=== PATIENT | female | born 1960 | race Caucasian/White ===

== ENCOUNTER 2019-07-11 10:25 | Inpatient (IN) | payer MEDICARE, OTHER ==
[~2019-07-11] VITALS: Ht 167.6 cm; Wt 99.4 kg
[2019-07-11] MEDS ORDERED: IV NORMAL SALINE 1,000ML 1,000 ML IV ONE (10:45)
[2019-07-11] MEDS ORDERED: ACETAMINOPHEN 325 MG TABLET PO ONE (10:45)
--- NOTE | 2019-07-11 11:05 | PHYS DOC ---
Adult General Chief Complaint Chief Complaint: ALTERED MENTAL STATUS HPI HPI 59-year-old female presents with fever and altered mental status. She lives in a long-term. She sometimes will not respond. When she is angry. She also does not respond when she is ill. They found the patient Fever, so they brought her to the emergency room. She has a history of COPD but is not on breathing treatments she tells us that she has been coughing. She normally has peripheral edema in her bilateral extremities. She denies increased shortness of breath. She does not complain of dysuria. Review of Systems Review of Systems Constitutional: Fever[] Eyes: Denies change in visual acuity, redness, or eye pain [] HENT: Denies nasal congestion or sore throat [] Respiratory: Cough without shortness of breath [] Cardiovascular: No additional information not addressed in HPI [] GI: Denies abdominal pain, nausea, vomiting, bloody stools or diarrhea [] : Denies dysuria or hematuria [] Musculoskeletal: Denies back pain or joint pain [] Integument: Denies rash or skin lesions [] Neurologic: Denies headache, focal weakness or sensory changes [] Endocrine: Denies polyuria or polydipsia [] All other systems were reviewed and found to be within normal limits, except as documented in this note. Current Medications Current Medications Current Medications Medications (Trade) Dose Ordered Sig/Sharona Start Time Stop Time Status Last Admin Dose Admin Acetaminophen (Tylenol) 650 mg 1X ONCE 07/11/19 10:45 07/11/19 10:46 UNV Sodium Chloride 1,000 ml @ 1,000 mls/hr 1X ONCE 07/11/19 10:45 07/11/19 11:44 UNV Physical Exam Physical Exam Constitutional: Well developed, well nourished, no acute distress, non-toxic appearance. [] HENT: Normocephalic, atraumatic, bilateral external ears normal, oropharynx moist, no oral exudates, nose normal. [] Eyes: PERRLA, EOMI, conjunctiva normal, no discharge. [] Neck: Normal range of motion, no tenderness, supple, no stridor. [] Cardiovascular: Heart rate regular rhythm, no murmur [] Lungs & Thorax: Bilateral breath sounds diminished[] Abdomen: Bowel sounds normal, soft, no tenderness, no masses, no pulsatile masses. [] Skin: Warm, dry, no erythema, no rash. [] Back: No tenderness, no CVA tenderness. [] Extremities: No tenderness, no cyanosis, no clubbing, ROM intact, 3+ bilateral pitting edema to the knees. [] Neurologic: Alert and oriented X 3, normal motor function, normal sensory function, no focal deficits noted. [] Psychologic: Affect normal, judgement normal, mood normal. [] EKG EKG [] Radiology/Procedures Radiology/Procedures [] Impressions: EXAM: CHEST AP ONLY INDICATION: Fever and cough. TECHNIQUE: Single AP view COMPARISON: None FINDINGS: The heart size is normal. The great vessels appear unremarkable. There is no hilar or mediastinal mass. The lungs are hypoventilatory but show patchy ill-defined opacity in the inferior right lung.. There is no pleural effusion or pneumothorax. There are no significant osseous abnormalities. IMPRESSION: Hypoventilatory chest showing ill-defined opacity in the posterior lateral right lung which could reflect early pneumonia in the appropriate clinical context. Consider follow-up to resolution. Electronically signed by: Kathy Hall MD (07/11/2019 11:28 AM) [facility] DICTATED AND SIGNED BY: KATHY HALL MD DATE: 07/11/19 1128 CC: DANIEL POWELL DO; SILVIA REYES MD ~ Course & Med Decision Making Course & Med Decision Making Pertinent Labs and Imaging studies reviewed. (See chart for details) The patient's influenza was negative. Her labs are unremarkable except for lactic acid 2.3. Her blood pressure is normal. Her heart rate is below 90. She is not hypoxic. Chest x-ray shows possible early pneumonia. Blood culture and lactic acid were drawn. The patient was given Zosyn in the ED. I discussed the patient with Dr. Galloway and he has accepted her for admission. [] Dragon Disclaimer Dragon Disclaimer This electronic medical record was generated, in whole or in part, using a voice recognition dictation system. Departure Departure: Impression: Primary Impression: Pneumonia Disposition: ADMITTED INPATIENT Admitting Physician: Harshad Galloway Condition: STABLE Referrals: SILVIA REYES MD (PCP) DANIEL POWELL DO Jul 11, 2019 11:05
[2019-07-11 11:25] LABS: BASO % 0 % (0-3); EOS % 0 % (0-3); HEMATOCRIT 42.5 % (36.0-47.0); HEMOGLOBIN 13.6 g/dL (12.0-15.5); LYMPH % 12 % (24-48); MEAN CORPUSCULAR HEMOGLOBIN 30 pg (25-35); MEAN CORPUSCULAR HGB CONC 32 g/dL (31-37); MEAN CORPUSCULAR VOLUME 93 fL (79-100); MONO # 0.5 x10^3/uL (0.0-1.1); MONO % 7 % (0-9); NEUT # 6.2 x10^3uL (1.8-7.7); NEUT % 81 % (31-73); PLATELET COUNT 173 x10^3/uL (140-400); RED BLOOD COUNT 4.59 x10^6/uL (3.50-5.40); RED CELL DISTRIBUTION WIDTH 13.8 % (11.5-14.5); WHITE BLOOD COUNT 7.7 x10^3/uL (4.0-11.0)
--- NOTE | 2019-07-11 11:31 | RAD ---
EXAM: CHEST AP ONLY INDICATION: Fever and cough. TECHNIQUE: Single AP view COMPARISON: None FINDINGS: The heart size is normal. The great vessels appear unremarkable. There is no hilar or mediastinal mass. The lungs are hypoventilatory but show patchy ill-defined opacity in the inferior right lung.. There is no pleural effusion or pneumothorax. There are no significant osseous abnormalities. IMPRESSION: Hypoventilatory chest showing ill-defined opacity in the posterior lateral right lung which could reflect early pneumonia in the appropriate clinical context. Consider follow-up to resolution. Electronically signed by: Antoinette Hall MD (07/11/2019 11:28 AM) [facility]
[2019-07-11 11:37] LABS: GFR 56.7; POTASSIUM 4.2 mmol/L (3.5-5.1)
[2019-07-11 11:41] LABS: ALBUMIN 3.2 g/dL (3.4-5.0); ALBUMIN/GLOBULIN RATIO 0.7 (1.0-1.7); TOTAL BILIRUBIN 0.3 mg/dL (0.2-1.0); TOTAL PROTEIN 7.5 g/dL (6.4-8.2)
[2019-07-11 11:53] LABS: INFLUENZA A PATIENT NEGATIVE (NEGATIVE); INFLUENZA B PATIENT NEGATIVE (NEGATIVE)
[2019-07-11 12:03] LABS: BACTERIA,URINE 0 /HPF (0-FEW); BILIRUBIN,URINE NEG (NEG); CLARITY,URINE CLEAR; COLOR,URINE YELLOW; GLUCOSE,URINE NEG (NEG); NITRITE,URINE NEG (NEG); RBC,URINE RARE /HPF (0-2); SQUAMOUS EPITHELIAL CELL,UR FEW /LPF; UROBILINOGEN,URINE 0.2 mg/dL (0.2 mg/dL); WBC,URINE OCC /HPF (0-4)
[2019-07-11] MEDS ORDERED: PIPERACILLIN/TAZOBACTAM 3.375 GM VIAL IV ONE (12:15)
[2019-07-11] MEDS ORDERED: IV NORMAL SALINE 50ML 50 ML ONE (12:15)
[2019-07-11] MEDS ORDERED: PIPERACILLIN/TAZOBACTAM 3.375 GM in IV NORMAL SALINE 50ML 50 ML IV ONE (12:15)
[2019-07-11] MEDS ORDERED: IOHEXOL 300 MG/ML 75 ML VIAL. IV ONE (12:30)
[2019-07-11] MEDS ORDERED: CONTRAST GIVEN MC PRN (12:30)
--- NOTE | 2019-07-11 13:34 | RAD ---
CT ABD PELV W/ IV CONTRST ONLY History: Left lower quadrant pain. Fever. Technique: After the administration of intravenous contrast, CT imaging was performed of the abdomen and pelvis. Multiplanar images are reviewed. Exposure: One or more of the following individualized dose reduction techniques were utilized for this examination: 1. Automated exposure control 2. Adjustment of the mA and/or kV according to patient size 3. Use of iterative reconstruction technique. Comparison: None Findings: Lower chest: No consolidation or pleural effusion. Abdomen and pelvis: The liver, spleen, adrenal glands, and pancreas are unremarkable. Normal appearance of the gallbladder. Dilated common bile duct measures up to 1.2 cm. Malrotated right kidney. No hydronephrosis. No renal calculi. Borderline enlarged appendix. Gas is seen within the appendix. No adjacent inflammatory changes to suggest acute appendicitis. No evidence of bowel obstruction. Thickening of the gastric antrum. No adjacent inflammatory changes. Mildly enlarged external iliac chain and inguinal lymph nodes. No ascites. Pelvic contents are otherwise unremarkable. Bones: Grade 1 anterolisthesis L4 on L5. Transitional lumbosacral anatomy with lumbarization of S1. Advanced multilevel lumbar spondylosis. Multilevel neuroforaminal narrowing. L4-L5 mild to moderate canal narrowing. Impression: 1. Dilated common bile duct. Recommend correlation with biliary lab values. MRCP can further evaluate if clinically indicated. 2. Moderate distal colonic and rectal stool. 3. Pelvic and inguinal lymphadenopathy, may be on a reactive basis although indeterminate. Recommend follow-up. 4. Mild gastric antral wall thickening, may relate to nondistention. Correlate for symptoms of gastritis. 5. Advanced multilevel lumbar spondylosis with grade 1 anterolisthesis L4 on L5. Electronically signed by: Moris Hunt DO (07/11/2019 1:31 PM) [id number]
[2019-07-11] MEDS: IV NORMAL SALINE 1,000ML 1,000 ML IV SCH ×3 (14:08→19:30)
--- NOTE | 2019-07-11 18:06 | NUR ---
PT ORIENTED TO ROOM AND UNIT,BED LOW AND LOCKED, SIDE RAILS UPX3, CALL LIGHT IN REACH. TELE APPLIES, ADMIT ORDER, AND MRSA SWAB SENT TO LAB. WILL CONTINUE TO ASSESS. Addendum: 07/11/19 at 1850 by Williams Daly RN REPORTED BY LILY NAVARRO THAT PT HAD IV IN LEFT FOREARM HOWEVER NO IV IN LEFT FOREARM WHEN PT ASSESSED.
[2019-07-11 18:17] VITALS: BP 92/48
--- NOTE | 2019-07-11 18:59 | NUR ---
DR MADSEN AWARE THAT PT ADMITTED FOR SEPSIS REPEAT LACTIC DRAWN WHEN PT ADMITTED TO ICU.
--- NOTE | 2019-07-11 19:04 | NUR ---
BEDSIDE REPORT GIVEN TO ELANA NAVARRO WHO ATTEMPT TO ESTABLISH IV ACCESS.
[2019-07-11 19:48] VITALS: BP 97/52
--- NOTE | 2019-07-11 20:50 | NUR ---
NEW IV ACCESS OBTAINED AFTER MULTIPLE ATTEMPTS. #22 TO LEFT WRIST. PT TEARFUL, BUT TOLERATED WITH ENCOURAGEMENT. 30MG/KG FLUID BOLUS COMPLETED. IV FLUIDS NOW RUNNING AT 100ML/HR.
--- NOTE | 2019-07-11 21:07 | NUR ---
DR. MADSEN NOTIFIED OF REPEAT LACTIC, 1.6. PT RECEIVED ONE TIME DOSE OF ZOSYN WHILE IN THE ED. NEW ORDERS FOR VANCO AND ZOSYN PER PHARMACY, ENTERED.
[2019-07-11] MEDS ORDERED: PIP/TAZO PER PHARMACY MC PRN (21:15)
[2019-07-11] MEDS ORDERED: VANCOMYCIN PER PHARMACY MC PRN (21:15)
[2019-07-11] MEDS ORDERED: VANCOMYCIN 2 GM in IV NORMAL SALINE 500ML 500 ML IV ONE (21:30)
--- NOTE | 2019-07-11 22:18 | NUR ---
Pharmacy Vancomycin Dosing Note S:Consulted to monitor and dose vancomycin started . O:GERBER OLSON is a 59 year old F with Pneumonia, . Height: 5 feet, 6 inches Weight: 100.0 kg [place] Body Weight: 59.30 Adjusted Body Weight: 75.58 Dosing Weight: Actual Other Antibiotics: ZOSYN 3.375GM Q6HRS LABS: Last BUN: 20 Last Creatinine: 1 Creatinine Clearance: Last WBC: 7.7 Last Procalcitonin: Tmax (past 24 hours): Microbiology: I/O: Drug Levels: Last level: on at Last dose given at Vancomycin Dosing: Loading Dose: 2000 mg x1 Dosing Weight: Actual Target Trough: 15-20 A: Based on: P: 1. Begin Vancomycin 1500 mg IV q12h 2. Follow up Trough level on 07/13/19 at 0930 3. Pharmacy will continue to monitor, follow and adjust therapy as needed. XAVIER SMALLS [facility], 07/11/19 [id number]
[2019-07-11 23:16] VITALS: BP 96/52
[2019-07-12] VITALS (8 sets, daily range): BP systolic 90–127; BP diastolic 50–87
[2019-07-12] MEDS: IV NORMAL SALINE 1,000ML 1,000 ML IV SCH (04:30)
[2019-07-12] MEDS ORDERED: ACETAMINOPHEN 325 MG TABLET PO PRN (05:15)
[2019-07-12] MEDS: PIPERACILLIN/TAZOBACTAM 3.375 GM in IV NORMAL SALINE 50ML 50 ML IV SCH ×6 (05:25→18:42)
[2019-07-12 06:19] LABS: HEMATOCRIT 36.1 % (36.0-47.0); HEMOGLOBIN 11.5 g/dL (12.0-15.5); RED BLOOD COUNT 3.89 x10^6/uL (3.50-5.40); RED CELL DISTRIBUTION WIDTH 14.2 % (11.5-14.5); WHITE BLOOD COUNT 6.8 x10^3/uL (4.0-11.0)
[2019-07-12 06:28] LABS: CALCIUM 8.1 mg/dL (8.5-10.1); CREATININE 0.9 mg/dL (0.6-1.0); GFR 64.1; POTASSIUM 3.4 mmol/L (3.5-5.1)
--- NOTE | 2019-07-12 07:30 | NUR ---
Shift report: Received report from night shift Corrina NAVARRO. PT experienced Corrina HAYWARD assisted on BSC and back to bed. PT resting quietly at this time, watching television. VSS. Alert to self and situation. Denies pain, nausea and further comfort needs. No evidence of distress at this time. PT stable at time of shift report. Addendum: 07/12/19 at 1251 by CECILLE BERNAL RN RN night shift RN discontinued fluids due to bilateral 3+ pitting edema in patient's legs. Patient is drinking and voiding regularly. PT saline locked at this time. Will continue to monitor.
[2019-07-12] MEDS: LACTOBACILLUS RHAMNOSUS GG 1 CAPSULE. PO SCH ×2 (09:38→20:22)
[2019-07-12] MEDS: VANCOMYCIN 1.5 GM in IV NORMAL SALINE 500ML 500 ML IV SCH ×2 (10:33→21:47)
--- NOTE | 2019-07-12 12:00 | NUR ---
40mEQ PO Potassium administered for electrolyte replacement of K+ 3.4.
[2019-07-12] MEDS ORDERED: POTASSIUM CHLORIDE 20 MEQ TABLET.ER. PO ONE (12:15)
--- NOTE | 2019-07-12 12:48 | NUR ---
Zosyn delayed as Vancomycin still running. Vionicedex reports variable y-site reactions with solution mixing.
[2019-07-12] MEDS ORDERED: DIVA-53 PO ×2 (15:52)
[2019-07-12] MEDS ORDERED: FAMO20TA5 PO (15:52)
[2019-07-12] MEDS ORDERED: ATOR10TA60 PO (15:52)
[2019-07-12] MEDS ORDERED: CARI1.5C PO (15:52)
[2019-07-12] MEDS ORDERED: MELA10CA PO ×2 (15:52→18:15)
[2019-07-12] MEDS ORDERED: GABA-585 PO (15:52)
[2019-07-12] MEDS ORDERED: CARB1TAB22 PO (15:52)
[2019-07-12] MEDS ORDERED: ESCITALOPRAM OX10 MG PO (15:52)
[2019-07-12] MEDS ORDERED: CARI3CAP PO (15:52)
[2019-07-12] MEDS ORDERED: ASPI81TA50 PO (15:52)
[2019-07-12] MEDS ORDERED: CETI10TA16 PO (15:52)
[2019-07-12] MEDS ORDERED: FLUT100D IH (18:15)
[2019-07-12] MEDS ORDERED: ROPI1TAB4 PO (18:15)
[2019-07-12] MEDS ORDERED: FLUTICASONE 50 MCG NS (18:15)
[2019-07-12] MEDS ORDERED: FURO40TA4 PO (18:15)
[2019-07-12] MEDS ORDERED: PROP20TA PO (18:15)
[2019-07-12] MEDS ORDERED: [UNRECOGNIZED DRUG - CODE] PO (18:15)
[2019-07-12] MEDS ORDERED: PRIM50TA24 PO ×2 (18:15)
[2019-07-12] MEDS ORDERED: CHOL200044 PO (18:15)
[2019-07-12] MEDS ORDERED: MONT10TA80 PO (18:15)
--- NOTE | 2019-07-12 18:38 | HP ---
ADMIT DATE: 07/11/2019 HISTORY OF PRESENT ILLNESS: The patient is a 59-year-old female patient, a resident at [facility], who was brought to the Emergency Room with altered mental status and fever. She apparently became very lethargic. They found the patient to be febrile and when she was extensively investigated in the Emergency Room, her white cell count was normal. Her chemistry was unremarkable. Her urinalysis also was unremarkable. Her influenza A and B were negative and her nasal screen for MRSA by PCR was negative; however, her chest x-ray showed hypoventilatory chest showing ill-defined opacity in the posterolateral right lung, which could reflect early pneumonia in the appropriate clinical context and therefore, the patient was admitted, was started on antibiotic in the form of Zosyn and vancomycin for healthcare-associated pneumonia. The patient herself has intellectual disability. PAST MEDICAL HISTORY: Significant for hyperlipidemia, mild intellectual disability, hypertension, allergic rhinitis, asthma, gastroesophageal reflux disease, schizoaffective disorder, bipolar, restless leg syndrome, tremors that are unspecified. PAST SURGICAL HISTORY: None reported. ALLERGIES: She has no known drug allergies. MEDICATIONS: She is currently on atorvastatin 10 mg at bedtime, carbidopa/levodopa 25/100 one tablet 4 times a day. She is also on divalproex 500 mg, she takes 1 tablet in the morning and 2 tablets at bedtime. She is on citalopram hydrobromide 10 mg once a day, famotidine 20 mg twice a day. REVIEW OF SYSTEMS: The patient was apparently very lethargic. FAMILY HISTORY: Unobtainable. SOCIAL HISTORY: She is a resident at [facility]. PHYSICAL EXAMINATION: GENERAL: On arrival to the Emergency Room, she apparently looked well and was clearly in no apparent respiratory distress. No pallor, jaundice, cyanosis or thyromegaly. No jugular venous distention. No limb edema. VITAL SIGNS: Her heart rate was 95, blood pressure 157/90, temperature was 101.7, respiratory rate was 24, and oxygen saturation was 97%. HEAD, EYES, EARS, NOSE AND THROAT: Showed normocephalic, atraumatic. NECK: Supple. HEART: Showed normal first and second heart sounds. No gallop, rub or murmur. CHEST: Showed central trachea, equal bilateral chest expansion and air entry, vesicular breath sounds. Few crepitation mostly in the right side posteriorly. I could not appreciate any rhonchi. ABDOMEN: Distended, soft, nontender. NEUROLOGIC: She is lethargic, but arousable. All cranial nerves intact. EXTREMITIES: She moves extremities without difficulty, although the patient has been so weak, she was unable to move, although normally she is able to walk with a walker. LABORATORY DATA: Her lab work on arrival showed a white cell count 7700, hemoglobin 13.6, hematocrit 42.5, MCV 93, and platelet count 273,000. Her chemistry showed a serum sodium 142, potassium 4.2, chloride 103, bicarbonate 28, anion gap of 11, BUN 20, creatinine 1, estimated GFR was 56 mL per minute. Her glucose 114, lactic acid was 2.3, calcium was 9. Total bilirubin, AST, ALT, alkaline phosphatase were normal. Total protein 7.5, albumin 3.2. Urinalysis was essentially unremarkable. Her nasal screen for MRSA PCR was negative and her influenza A and B were negative. ASSESSMENT AND PLAN: The patient was admitted with healthcare-associated pneumonia, fever, lactic acidosis. She was treated with IV Rocephin and Zithromax. Once we have her medication list, we will reconcile them and will deescalate her antibiotic once we have the culture and sensitivity. JEFFERY MADSEN MD DR: REYNOLD/mariusz JOB#: [id number] / [id number]
[2019-07-12] MEDS: MAGNESIUM OXIDE 400 MG TABLET PO SCH (20:21)
[2019-07-12] MEDS: MONTELUKAST 10 MG TABLET. PO SCH (20:22)
[2019-07-12] MEDS: CARBIDOPA/LEVODOPA 25/100MG TABLET PO SCH (20:22)
[2019-07-12] MEDS: DIVALPROEX SODIUM 250 MG TABLET.DR. PO SCH (20:22)
[2019-07-12] MEDS: MELATONIN 3 MG TABLET PO SCH (20:22)
[2019-07-12] MEDS: rOPINIRole 1 MG TABLET. PO SCH (20:22)
[2019-07-12] MEDS: FAMOTIDINE 20 MG TABLET PO SCH (20:22)
[2019-07-12] MEDS: GABAPENTIN 100 MG CAPSULE. PO SCH (20:22)
[2019-07-12] MEDS: FUROSEMIDE 40 MG TABLET PO SCH (20:23)
[2019-07-12] MEDS: PROPRANOLOL 20 MG TABLET. PO SCH (20:25)
[2019-07-12] MEDS: BUDESONIDE 0.5 MG/2 ML NEBU NEB SCH (20:53)
[2019-07-12] MEDS ORDERED: NON FORMULARY ITEM (Fluticasone Propionate (Flovent 100MCG Diskus) 2 PUFF) IH SCH (21:00)
--- NOTE | 2019-07-12 21:20 | NUR ---
Nursing note Pt in bed at shift change, alert and oriented to self and location, smiles on approach, no agitation or aggression. Compliant with meds and assessments, held propranolol for low BP 105/51 pt is already a bit unsteady on her feet so held for now. Takes po meds well no swallowing issues. Mild intellectual deficits noted, but is able to make her needs known. Can transfer with one assist to bedside commode.
[2019-07-12] MEDS: PRIMIDONE 50 MG TABLET PO SCH (21:45)
[2019-07-13] MEDS: PIPERACILLIN/TAZOBACTAM 3.375 GM in IV NORMAL SALINE 50ML 50 ML IV SCH ×4 (03:16→16:58)
--- NOTE | 2019-07-13 05:17 | NUR ---
Nursing Note Pt awoke around 4 am wet from incontinence, bath given and bed changed, back to bed and comfortable at this time.
--- NOTE | 2019-07-13 06:24 | PN ---
DATE: SUBJECTIVE: The patient is sitting, slightly propped up in bed, eating her dinner comfortably, in no apparent distress. She denied any complaint. The nursing staff stated that she is definitely much improved. She is now able to get out of the bed to bedside commode with assistance something that she has been able to do over the last few days. She is feeding herself and she has some tremors. She is, however, remained afebrile. PHYSICAL EXAMINATION: GENERAL: When I examined her, she was pale, but no jaundice, cyanosis or thyromegaly. No jugular venous distention. No limb edema. VITAL SIGNS: Her heart rate was 54, blood pressure was 96/52, temperature 97.5, respiratory rate was 16 and oxygen saturation was 96%. HEAD, EYES, EARS, NOSE AND THROAT: Normocephalic, atraumatic. NECK: Supple. HEART: Showed normal first and second heart sounds. No gallop or murmur. CHEST: Clear to auscultation. No crepitation or rhonchi. ABDOMEN: Distended, soft, nontender. No guarding or rigidity. No organomegaly. All hernial orifices intact. Bowel sounds normal. NEUROLOGIC: She was more awake, alert, responding appropriately. All cranial nerves intact. She moves extremities without difficulty. She managed to get out of bed to bedside commode with assistance. Her intake was 5330, output was 650. LABORATORY DATA: Her lab work this morning showed her white cell count to be ____, hemoglobin 11.5, hematocrit 36, MCV 93 and platelet count 249,000. Her chemistry showed a serum sodium 141, potassium 3.4, chloride 106, bicarbonate 27, anion gap of 8, BUN 17, creatinine 0.9, estimated GFR was 64 mL per minute. His glucose was 106, calcium was 8.1. ASSESSMENT: In summary, this is a 59-year-old female patient with mild intellectual disability, who lives at [facility], who was admitted yesterday with fever, lactic acidosis and was found to have right lower lobe infiltrate and was admitted and treated with IV antibiotic using healthcare-associated pneumonia protocol. She is doing much better. She has multiple other medical problems including: A. Hypertension. B. Hyperlipidemia. C. Bronchial asthma. D. Gastroesophageal reflux disease. E. Restless leg syndrome and allergic rhinitis, together with schizoaffective disorder. PLAN: To continue with IV antibiotic for now. We will await the result of blood culture and if it is negative, we can switch her to oral Augmentin and can be discharged back to [facility] tomorrow or after ____. JEFFERY MADSEN MD DR: REYNOLD/mariusz JOB#: [id number] / [id number]
[2019-07-13 07:05] VITALS: BP 92/59
[2019-07-13] MEDS: rOPINIRole 1 MG TABLET. PO SCH ×3 (08:04→22:22)
[2019-07-13] MEDS: PRIMIDONE 50 MG TABLET PO SCH ×3 (08:04→22:23)
[2019-07-13] MEDS: FLUTICASONE 50MCG/NASAL SPRAY 16GM BOTTLE. NS SCH (08:04)
[2019-07-13] MEDS: ASPIRIN ENTERIC COATED 81 MG TABLET.DR. PO SCH (08:04)
[2019-07-13] MEDS: LACTOBACILLUS RHAMNOSUS GG 1 CAPSULE. PO SCH ×2 (08:04→22:22)
[2019-07-13] MEDS: CHOLECALCIFEROL (VITAMIN D3) 1,000 UNIT TABLET PO SCH (08:05)
[2019-07-13] MEDS: FAMOTIDINE 20 MG TABLET PO SCH ×2 (08:06→22:21)
[2019-07-13] MEDS: DIVALPROEX SODIUM 250 MG TABLET.DR. PO SCH ×2 (08:06→22:21)
[2019-07-13] MEDS: CETIRIZINE HCL 10 MG TABLET PO SCH (08:06)
[2019-07-13] MEDS: CARBIDOPA/LEVODOPA 25/100MG TABLET PO SCH ×4 (08:06→22:22)
[2019-07-13] MEDS: ATORVASTATIN CALCIUM 10 MG TABLET. PO SCH (08:06)
[2019-07-13] MEDS: MAGNESIUM OXIDE 400 MG TABLET PO SCH ×3 (08:06→22:22)
[2019-07-13] MEDS: PROPRANOLOL 20 MG TABLET. PO SCH ×2 (08:06→22:20)
[2019-07-13] MEDS ORDERED: POTASSIUM CHLORIDE 20 MEQ TABLET.ER. PO ONE (08:15)
[2019-07-13] MEDS: NON FORMULARY ITEM (Cariprazine Hydrochloride (Vraylar) 1 CAP) PO SCH (09:00)
[2019-07-13] MEDS ORDERED: NON FORMULARY ITEM (Cariprazine Hydrochloride (Vraylar) 1 CAP) PO SCH (09:00)
[2019-07-13 10:03] LABS: CALCIUM 8.9 mg/dL (8.5-10.1); CREATININE 0.9 mg/dL (0.6-1.0); GFR 64.1; POTASSIUM 4.4 mmol/L (3.5-5.1)
[2019-07-13] MEDS: VANCOMYCIN 1.5 GM in IV NORMAL SALINE 500ML 500 ML IV SCH ×2 (10:14→22:00)
[2019-07-13] MEDS: FUROSEMIDE 40 MG TABLET PO SCH ×2 (10:15→13:48)
--- NOTE | 2019-07-13 10:35 | NUR ---
Pt feeling ok today. PT is impulsive and will get up without calling, pt is otherwise able to verbalize understanding of poc. Du NAVARRO
[2019-07-13 10:57] VITALS: BP 106/68
[2019-07-13 11:02] LABS: VANC TR 18.5 mcg/mL (10.0-20.0)
--- NOTE | 2019-07-13 11:10 | NUR ---
Pharmacy Vancomycin Dosing Note S:Consulted to monitor and dose vancomycin started . O:WESLEYGERBER Dover is a 59 year old F with Pneumonia, . Height: 5 feet, 6 inches Weight: 101.8 kg [place] Body Weight: 59.30 Adjusted Body Weight: 75.58 Dosing Weight: Actual Other Antibiotics: ZOSYN 3.375GM Q6HRS LABS: Last BUN: 20 Last Creatinine: 0.9 Creatinine Clearance: Last WBC: 7.7 Last Procalcitonin: Tmax (past 24 hours): Microbiology: CULTURES PENDING I/O: Drug Levels: VANCO TROUGH Last level: 18.5 on 07/13 at 0930 Last dose given at 07/12 2100 Vancomycin Dosing: Loading Dose: 2000 mg x1 Dosing Weight: Actual Target Trough: 15-20 A: Based on: P: 1. Continue CONTINUE Vancomycin 1500 mg IV q12h 2. Pharmacy will continue to monitor, follow and adjust therapy as needed. MALLORIE NUÑEZ [facility], 07/13/19 [id number]
[2019-07-13] MEDS: BUDESONIDE 0.5 MG/2 ML NEBU NEB SCH ×2 (11:34→20:06)
[2019-07-13 16:28] VITALS: BP 113/81
[2019-07-13 19:00] VITALS: BP 114/78
--- NOTE | 2019-07-13 20:17 | PN ---
DATE: 07/13/2019 SUBJECTIVE: The patient is resting, slightly propped up in bed, in no apparent respiratory distress. She is more awake, alert. Denied any complaint. Nursing staff said that she is slightly better this morning, she wanted to get out of the bed with a bedside commode; however, her blood pressure and heart rate were low as she is on high dose of propranolol. PHYSICAL EXAMINATION: GENERAL: When I examined her this afternoon, she looked well and was clearly in no apparent respiratory distress. No pallor, jaundice, cyanosis or thyromegaly. No jugular venous distention. No limb edema. VITAL SIGNS: Her heart rate was 68, blood pressure was 106/68, temperature 97.9, respiratory rate 20, and oxygen saturation was 98% on room air. HEAD, EYES, EARS, NOSE AND THROAT: Showed normocephalic, atraumatic. NECK: Supple. HEART: Showed normal first and second heart sounds with no gallop, rub or murmur. CHEST: Clear to auscultation. No crepitation or rhonchi. ABDOMEN: Distended, soft, nontender. No guarding or rigidity. No organomegaly. All hernial orifice intact. Bowel sounds normal. NEUROLOGIC: She has mild intellectual disability; however, all cranial nerves are intact. She moves extremities without difficulty. Her intake over the last 24 hours was 4800, output was 7350. LABORATORY DATA: Her lab work this morning showed a white cell count 6000, hemoglobin 11, hematocrit 36, MCV 93, and platelet count 249,000. Serum sodium 145, potassium 4.4, chloride 110, bicarbonate 29, anion gap of 6, BUN 14, creatinine 0.9, estimated GFR was 64 mL per minute. Her blood cultures so far showed no growth after 2 days. PLAN: My plan is to discontinue vancomycin. Continue with Zosyn for now. We will probably discharge her home. JEFFERY MADSEN MD DR: REYNOLD/mariusz JOB#: [id number] / [id number]
[2019-07-13] MEDS: MELATONIN 3 MG TABLET PO SCH (22:21)
[2019-07-13] MEDS: MONTELUKAST 10 MG TABLET. PO SCH (22:21)
[2019-07-13] MEDS: GABAPENTIN 100 MG CAPSULE. PO SCH (22:22)
[2019-07-13 22:47] VITALS: BP 110/74
[2019-07-14] MEDS: PIPERACILLIN/TAZOBACTAM 3.375 GM in IV NORMAL SALINE 50ML 50 ML IV SCH ×3 (00:18→12:26)
[2019-07-14 05:03] VITALS: BP 128/84
[2019-07-14] MEDS: FLUTICASONE 50MCG/NASAL SPRAY 16GM BOTTLE. NS SCH (08:38)
[2019-07-14] MEDS: DIVALPROEX SODIUM 250 MG TABLET.DR. PO SCH (08:38)
[2019-07-14] MEDS: CARBIDOPA/LEVODOPA 25/100MG TABLET PO SCH ×2 (08:38→12:26)
[2019-07-14] MEDS: MAGNESIUM OXIDE 400 MG TABLET PO SCH ×2 (08:38→14:01)
[2019-07-14] MEDS: CETIRIZINE HCL 10 MG TABLET PO SCH (08:38)
[2019-07-14] MEDS: CHOLECALCIFEROL (VITAMIN D3) 1,000 UNIT TABLET PO SCH (08:39)
[2019-07-14] MEDS: FUROSEMIDE 40 MG TABLET PO SCH (08:39)
[2019-07-14] MEDS: ATORVASTATIN CALCIUM 10 MG TABLET. PO SCH (08:39)
[2019-07-14] MEDS: FAMOTIDINE 20 MG TABLET PO SCH (08:39)
[2019-07-14] MEDS: PROPRANOLOL 20 MG TABLET. PO SCH (08:39)
[2019-07-14] MEDS: ASPIRIN ENTERIC COATED 81 MG TABLET.DR. PO SCH (08:39)
[2019-07-14] MEDS: BUDESONIDE 0.5 MG/2 ML NEBU NEB SCH (08:40)
[2019-07-14] MEDS: PRIMIDONE 50 MG TABLET PO SCH ×2 (08:40→14:02)
[2019-07-14] MEDS: LACTOBACILLUS RHAMNOSUS GG 1 CAPSULE. PO SCH (08:40)
[2019-07-14] MEDS: rOPINIRole 1 MG TABLET. PO SCH ×2 (08:41→14:02)
[2019-07-14] MEDS: NON FORMULARY ITEM (Cariprazine Hydrochloride (Vraylar) 1 CAP) PO SCH (09:00)
[2019-07-14] MEDS: VANCOMYCIN 1.5 GM in IV NORMAL SALINE 500ML 500 ML IV SCH (09:23)
[2019-07-14 11:05] VITALS: BP 105/70
[2019-07-14 14:51] VITALS: BP 112/79
[2019-07-14] MEDS ORDERED: AMOX1TAB61 PO (14:57)
--- NOTE | 2019-07-14 16:17 | NUR ---
Discharge Note: GERBER OLSON [address] Discharge instructions and discharge home medications reviewed with Patient and a copy given. All questions have been answered and understanding verbalized. The following instructions and handouts were given: Take medications as prescribed. Discontinued lines and drains: discontinued peripheral IV, catheter tip intact, pressure dressing applied. NO apparant complications. Patient discharged to home.
--- NOTE | 2019-07-14 19:29 | DS ---
DATE OF DISCHARGE: 07/14/2019 HOSPITAL COURSE: The patient is a 59-year-old female patient, resident at [facility], who was admitted through the Emergency Room with altered mental status, fever. She became very lethargic and was found to be febrile, extensively investigated and was found to have right lower lobe infiltrate. She was admitted and started on IV Zosyn and vancomycin for healthcare-associated pneumonia. The patient herself has intellectual disability, does not really give useful information. She remained afebrile since she arrived. Her white cell count was normal and her blood cultures remained negative after 3 days. We did discontinue her vancomycin yesterday and continued Zosyn that she remained hemodynamically stable and afebrile. A decision was made to discharge her back to [facility] to continue with oral Augmentin. PHYSICAL EXAMINATION: GENERAL: When I saw her this afternoon, she looked well and was clearly in no apparent respiratory distress, slightly pale, but not jaundiced, cyanosis or thyromegaly. NECK: No jugular venous distention. No limb edema. VITAL SIGNS: Her heart rate was 64, blood pressure 105/70, temperature 97.6, respiratory rate 20, and oxygen saturation was 100%. HEAD, EYES, EARS, NOSE AND THROAT: Showed normocephalic, atraumatic. NECK: Supple. HEART: Showed normal first and second heart sounds with no gallop, rub or murmur. CHEST: Clear to auscultation except for mild few crepitations on the right side posteriorly. No rhonchi. ABDOMEN: Distended, soft, nontender. NEUROLOGIC: She has mild intellectual disability; however, all her cranial nerves are intact. EXTREMITIES: She moves extremities without difficulty. She does ambulate without assistance or assistive devices. Her intake over the last 24 hours was 4800, output was 7350. LABORATORY DATA: Her lab work this morning showed a white cell count of 6800, hemoglobin 11, hematocrit 36, MCV 93, and platelet count of 149,000. Serum sodium 145, potassium 4.4, chloride 110, bicarbonate 29, anion gap of 6, BUN 14, creatinine 0.9, estimated GFR was 64 mL per minute. Her glucose 131 and calcium was 8.9. Urinalysis was unremarkable. Toxic screen showed vancomycin trough level was within normal range. Influenza A and B were negative. DISCHARGE MEDICATIONS: She was discharged home to continue on Augmentin 875 mg twice a day with food for another 7 days. Continue with aspirin 81 mg once a day, atorvastatin 10 mg at bedtime, carbidopa/levodopa 1 tablet 4 times a day, . She is on Vraylar 3 mg daily. She is on cetirizine 10 mg once a day, ergocalciferol vitamin D3 50 mcg once a day, divalproex sodium 500 mg daily, divalproex 1000 mg at bedtime, escitalopram oxalate 10 mg [id number]-half tablet at bedtime daily, famotidine 20 mg twice a day, Flovent 100 mcg 2 puffs twice a day, fluticasone 2 sprays to each nostril once a day, furosemide 40 mg twice a day, gabapentin 100 mg at bedtime, magnesium oxide 400 mg 3 times a day, melatonin 3 mg at bedtime, montelukast 10 mg at bedtime, Mysoline 100 mg twice a day, primidone 100 mg at bedtime, propranolol 60 mg twice a day and Requip 1 mg 3 times a day. FINAL DISCHARGE DIAGNOSES: 1. Healthcare-associated pneumonia, resolving. Other medical problems include: A. Hyperlipidemia. B. Mild intellectual disability. C. Hypertension. D. Allergic rhinitis. E. bronchial asthma. F. Gastroesophageal reflux disease. G. Schizoaffective disorder, bipolar. H. Restless leg syndrome. JEFFERY MADSEN MD DR: REYNOLD/mariusz JOB#: [id number] / [id number]
== END 2019-07-14 16:40 | disposition home or self-care (01) | DRG 178 ==
LOC: ER 10:25 → ICU 17:15 → 1 SOUTH 07-13 16:49
PROVIDERS: ADMIT Internal Medicine; ATTEND Internal Medicine
DX: J15.6 Pneumonia due to other Gram-negative bacteria (principal); J44.0 Chronic obstructive pulmonary disease with (acute) lower respiratory infection; E87.2 Acidosis; E78.5 Hyperlipidemia, unspecified; F25.9 Schizoaffective disorder, unspecified; F70 Mild intellectual disabilities; G25.81 Restless legs syndrome; I10 Essential (primary) hypertension; K21.9 Gastro-esophageal reflux disease without esophagitis; Y95 Nosocomial condition
CPT/HCPCS: 36415; 71045; 74177; 80048; 80053; 80202; 81001; 83605; 83880; 85025; 85027; 87040; 87641; 87804; 94640; 96361; 96365; J2543; J3370; J7040; J7626; Q9967; 99285-25; J7030

== ENCOUNTER → 2019-08-10 | Outpatient (CLI) | payer MEDICARE, OTHER ==
[2019-07-14 14:51] VITALS: BP 112/79
[~2019-08-10] MED LIST: AMOX1TAB61 PO; ASPI81TA50 PO; ATOR10TA60 PO; CARB1TAB22 PO; CARI1.5C PO; CARI3CAP PO; CETI10TA16 PO; CHOL200044 PO; DIVA-53 PO; ESCITALOPRAM OX10 MG PO; FAMO20TA5 PO; FLUT100D IH; FLUTICASONE 50 MCG NS; FURO40TA4 PO; GABA-585 PO; MELA10CA PO; MONT10TA80 PO; PRIM50TA24 PO; PROP20TA PO; ROPI1TAB4 PO; [UNRECOGNIZED DRUG - CODE] PO
--- NOTE | 2019-08-10 12:20 | RAD ---
CHEST PA LATERAL History: Pneumonia, former smoker. Comparison: AP chest 07/11/2019. Findings: The cardiomediastinal silhouette is normal. Pulmonary vasculature is normal. Patchy right lower lobe airspace disease is similar to prior study. The left lung is clear. No pleural effusion or pneumothorax is seen. Degenerative endplate spurring of the thoracic spine. IMPRESSION: Right lower lobe airspace disease is unchanged. Electronically signed by: Fernando Munguia MD (08/10/2019 12:17 PM) [id number]
== END | disposition home or self-care (01) ==
LOC: DXRAD 09:15
PROVIDERS: ATTEND Specialist
DX: J98.4 Other disorders of lung (principal); J15.9 Unspecified bacterial pneumonia; M46.04 Spinal enthesopathy, thoracic region; Z87.891 Personal history of nicotine dependence
CPT/HCPCS: 71046

== ENCOUNTER 2020-01-06 19:31 | Inpatient (IN) | payer MEDICARE, OTHER ==
[~2020-01-06] VITALS: Ht 167.6 cm; Wt 82.1 kg
[2020-01-06] MEDS ORDERED: IV RINGERS SOLUTION,LACTATED 1,000 ML IV SCH (19:40)
--- NOTE | 2020-01-06 19:40 | PHYS DOC ---
Past History Past Medical History: Anxiety, Arthritis, Schizophrenia, Other Additional Past Medical Histor: INTELLECTUAL DEVELOPMENT PROBLEM Past Surgical History: No Surgical History Alcohol Use: None General Adult EDM: Chief Complaint: FEVER HPI: HPI: "..I am not feeling well the past couple days.. they said had a fever..been cou ghing a lot.. wheeze...just don't feel well..." Patient is a 59 year old female who presents with resident of [facility], presents with above hx and complaints fever, chills, dyspnea, cough, chest pain, arthralgia, myalgia, and malaise. No recent travel outside [facility]. No specific ill contacts but there are other individuals in the rehab facility that have medical illnesses. No history of immunosuppression. No history of changes in meds. Patient has had episodes of bronchitis and COPD in the past. Patient does have history of hyperlipidemia, intellectual disability, hypertension, allergic rhinitis, asthma, GERD, schizoaffective disorder, bipolar, restless leg syndrome, tremors, pneumonia, and deconditioning. Review of Systems: Review of Systems: Constitutional: Denies fever or chills Eyes: Denies change in visual acuity HENT: Denies nasal congestion or sore throat Respiratory: History of cough or shortness of breath Cardiovascular: History of chest pain GI: Denies abdominal pain, nausea, vomiting, bloody stools or diarrhea : Denies dysuria Musculoskeletal: Denies back pain or joint pain Integument: Denies rash Neurologic: Denies headache, focal weakness or sensory changes Endocrine: Denies polyuria or polydipsia Lymphatic: Denies swollen glands Psychiatric: Denies depression or anxiety Heart Score: HEART Score for Chest Pain: HEART Score for Chest Pain Response (Comments) Value History Slighlty/Non-Suspicious 0 ECG Normal 0 Age >45 - < 65 1 Risk Factors 1 or 2 Risk Factors 1 Troponin < Normal Limit 0 Total 2 Risk Factors: Risk Factors: DM, Current or recent (<one month) smoker, HTN, HLP, family history of CAD, obesity. Risk Scores: Score 0 - 3: 2.5% MACE over next 6 weeks - Discharge Home Score 4 - 6: 20.3% MACE over next 6 weeks - Admit for Clinical Observation Score 7 - 10: 72.7% MACE over next 6 weeks - Early Invasive Strategies Family History: Family History: Not currently available Current Medications: Current Meds: See nursing for home meds Allergies: Allergies: Allergies Coded Allergies Type Severity Reaction Last Updated Verified No Known Drug Allergies 07/11/19 No Physical Exam: PE: Constitutional: Moderate acute distress, non-toxic appearance. [] HENT: Normocephalic, atraumatic, bilateral external ears normal, oropharynx moist, no oral exudates, nose clear rhinorrhea. Postnasal drainage. Eyes: PERRLA, EOMI, conjunctiva normal, no discharge. [] Neck: Normal range of motion, no tenderness, supple, no stridor. [] Cardiovascular:Heart rate regular rhythm, no murmur [] PMI to the left. Lungs & Thorax: Bilateral breath sounds clear to auscultation [] Abdomen: Bowel sounds normal, soft, no tenderness, no masses, no pulsatile masses. Obese Skin: Warm, dry, no erythema, no rash. [] Back: No tenderness, no CVA tenderness. [] Extremities: No tenderness, no cyanosis, no clubbing, ROM intact, ankle edema. [] Neurologic: Alert and oriented X 3, moves extremities on request, does have distal sensory, no focal deficits noted. [] Psychologic: Affect anxious, judgment appears to have some intellectual disability mood normal. [] EKG: EKG: My interpretation of EKG shows a sinus rhythm at 80 bpm. Leftward axis. Does have baseline artifact from tremor [] Radiology/Procedures: Radiology/Procedures: [address] [address] IMAGING REPORT Signed PATIENT: GERBER OLSON AACCOUNT: [id number] : 1960 LOCATION: SOUTH AGE: 59 SEX: F EXAM STATUS: ADM IN ORD. PHYSICIAN: GABRIEL LARIOS MD REASON: cp,dyspnea, OMNI 350, 75ml PROCEDURE: CT ANGIOGRAPHY CHEST Study: CT CHEST WITH CONTRAST - PULMONARY ANGIOGRAM History: Chest pain. Dyspnea. Pulmonary embolism. Comparison: Correlation is made to the CT abdomen/pelvis from 07/11/2019. Technique: Helical CT of the chest performed after the administration of 75 cc Omnipaque 350 intravenous contrast and timed for angiographic evaluation of the pulmonary arteries per PE protocol. Coronal and sagittal 3D MIP reformations were obtained. One or more of the following individualized dose reduction techniques were utilized for this examination: 1. Automated exposure control 2. Adjustment of the mA and/or kV according to patient size 3. Use of iterative reconstruction technique. Findings: Pulmonary Arteries: No main, lobar or segmental pulmonary embolism. Heart/Systemic Vasculature: No CT findings of overt right heart strain. LAD calcific coronary artery disease. Nonaneurysmal aorta. Mediastinum: Scattered mediastinal and hilar lymph nodes do not meet pathologic criteria based on size. Small hiatal hernia. Mild circumferential thickening of the distal esophageal wall. Lungs: No confluent infiltrate, pleural effusion or pneumothorax. No suspicious pulmonary nodule by size criteria. Neck/Axilla/Body Wall: Heterogeneous prominence of the right thyroid lobe relative to the left with a thin somewhat linear calcification at the mid pole. This may be associated with a nodule but no measurable nodule is apparent. Scattered subcentimeter short axis axillary/subpectoral lymph nodes. Heterogeneous breast tissue without a discrete mass. Upper Abdomen: Nodular configuration of the left adrenal gland is not significantly different from the comparison. Bones: Findings typical of diffuse idiopathic skeletal hyperostosis. Grade 1 anterolisthesis of C7 on T1. Multifocal degenerative changes with mineralized protruding foci at T6-T7 larger than T7-T8. Degenerative changes of both shoulders and possible sequela of prior trauma on the right. Miscellaneous: None. IMPRESSION: 1. No main, lobar or segmental pulmonary embolism. 2. Calcific coronary artery disease involving the LAD. 3. Heterogeneous breast tissue without a discrete mass. If not recently performed screening mammography is recommended. 4. Additional chronic findings, as above Electronically signed by: LINA GORE MD (01/06/2020 11:13 PM) [id number] [][address] [address] IMAGING REPORT Signed PATIENT: GERBER OLSON AACCOUNT: [id number] : 1960 LOCATION: ER AGE: 59 SEX: F EXAM STATUS: REG ER ORD. PHYSICIAN: GABRIEL LARIOS MD REASON: cp, SHORT OF BREATH, COUGH. PROCEDURE: CHEST AP ONLY AP chest. HISTORY: Chest pain, short of breath, cough AP view was taken of the chest. Lungs are clear. Heart is normal in size. There is no effusion. There is thoracolumbar scoliosis. IMPRESSION: 1. No acute infiltrates. Electronically signed by: Chaka Dimas MD (01/06/2020 8:48 PM) [facility] DICTATED AND SIGNED BY: CHAKA DIMAS MD DATE: 01/06/202047 CC: GABRIEL LARIOS MD; SILVIA REYES MD ~ Course & Med Decision Making: Course & Med Decision Making Pertinent Labs and Imaging studies reviewed. (See chart for details) Discussed presentation, testing and tx. plan with Dr. Galloway. Admit for Chest pain rule out and COPD exacerbation Impression: 1. Coughing 2. Dyspnea 3. Bronchitis 4. COPD Exacerbation 5.Chest Pain 6. Fever 7.HTN 8. Intellectual Disability 9. GERD 10. Asthma 11.Restless Leg Syndrome 12.Tremors 13.Hyperlipidemia 14. Elevated BUN/Creat 22/1.3 15.Elevated D dimer 16.Thrombocytopenia 132 [] Dragon Disclaimer: Dragon Disclaimer: This electronic medical record was generated, in whole or in part, using a voice recognition dictation system. Departure Departure: Disposition: 01 HOME/RESIDENCE PRIOR TO ADM Condition: STABLE Referrals: SILVIA REYES MD (PCP) Justification of Admission: Justification of Admission: Justification of Admission Dx: Yes Hypertension: Cres[place] Worsening of Sym Dragon Disclaimer This chart was dictated in whole or in part using Voice Recognition software in a busy, high-work load, and often noisy Emergency Department environment. It may contain unintended and wholly unrecognized errors or omissions. GABRIEL LARIOS MD Jan 06, 2020 19:40
[2020-01-06] MEDS ORDERED: ASPIRIN CHEWABLE 81 MG TABLET. PO ONE (19:45)
[2020-01-06] MEDS ORDERED: AZITHROMYCIN 250 MG TABLET. PO ONE (20:30)
[2020-01-06] MEDS ORDERED: ACETAMINOPHEN 500 MG TABLET PO ONE (20:30)
[2020-01-06 20:38] LABS: BASO % 0 % (0-3); EOS % 0 % (0-3); HEMATOCRIT 39.3 % (36.0-47.0); HEMOGLOBIN 13.1 g/dL (12.0-15.5); LYMPH # 1.2 x10^3/uL (1.0-4.8); LYMPH % 13 % (24-48); MEAN CORPUSCULAR HEMOGLOBIN 31 pg (25-35); MEAN CORPUSCULAR HGB CONC 33 g/dL (31-37); MEAN CORPUSCULAR VOLUME 92 fL (79-100); MONO # 0.9 x10^3/uL (0.0-1.1); MONO % 9 % (0-9); NEUT # 7.6 x10^3uL (1.8-7.7); NEUT % 78 % (31-73); PLATELET COUNT 132 x10^3/uL (140-400); RED BLOOD COUNT 4.28 x10^6/uL (3.50-5.40); RED CELL DISTRIBUTION WIDTH 15.2 % (11.5-14.5); WHITE BLOOD COUNT 9.7 x10^3/uL (4.0-11.0)
[2020-01-06 20:45] LABS: CREATININE 1.1 mg/dL (0.6-1.0); GFR 50.8; POTASSIUM 3.7 mmol/L (3.5-5.1)
[2020-01-06 20:46] LABS: BARBITURATES POS (NEG); BENZODIAZEPINES NEG (NEG); CANNABINOIDS NEG (NEG); COCAINE NEG (NEG); METHADONE NEG (NEG); OPIATES NEG (NEG); PHENCYCLIDINE NEG (NEG)
[2020-01-06 20:47] LABS: AMPHETAMINE/METHAMPHETAMINE NEG (NEG)
--- NOTE | 2020-01-06 20:51 | RAD ---
AP chest. HISTORY: Chest pain, short of breath, cough AP view was taken of the chest. Lungs are clear. Heart is normal in size. There is no effusion. There is thoracolumbar scoliosis. IMPRESSION: 1. No acute infiltrates. Electronically signed by: Chaka Dimas MD (01/06/2020 8:48 PM) [facility]
[2020-01-06 20:55] LABS: BILIRUBIN,URINE NEG (NEG); CLARITY,URINE CLEAR; COLOR,URINE YELLOW; GLUCOSE,URINE NEG (NEG)
[2020-01-06 20:56] LABS: BACTERIA,URINE 0 /HPF (0-FEW); NITRITE,URINE NEG (NEG); RBC,URINE OCC /HPF (0-2); SQUAMOUS EPITHELIAL CELL,UR FEW /LPF; WBC,URINE OCC /HPF (0-4)
[2020-01-06 21:00] LABS: ALBUMIN 3.1 g/dL (3.4-5.0); DIRECT BILIRUBIN 0.1 mg/dL (0.0-0.2); TOTAL BILIRUBIN 0.3 mg/dL (0.2-1.0); TOTAL PROTEIN 7.6 g/dL (6.4-8.2)
[2020-01-06] MEDS ORDERED: ONDANSETRON PF 4 MG/2 ML VIAL. IVP PRN (21:00)
[2020-01-06 21:02] LABS: INFLUENZA A PATIENT NEGATIVE (NEGATIVE); INFLUENZA B PATIENT NEGATIVE (NEGATIVE)
[2020-01-06 21:18] LABS: ACETAMIN < 2 mcg/mL (10-30)
[2020-01-06] MEDS ORDERED: methylPREDNISolone SOD SUCC PF 125 MG/2 ML VIAL. IV ONE (21:30)
[2020-01-06] MEDS ORDERED: CONTRAST GIVEN. MC PRN (21:30)
--- NOTE | 2020-01-06 21:36 | EKG ---
[address] [address] Test Date: 2020-01-06 Test Time: 20:20:58 Pat Name: GERBER OLSON Department: Room: Gender: F [employer]: : 1960 Requested By: GABRIEL LARIOS Order Number: [id number] Reading MD: Measurements Intervals [place] Rate: 80 P: 0 WY: 152 QRS: -11 QRSD: 104 T: 20 QT: 372 QTc: 433 Interpretive Statements SINUS RHYTHM LEFTWARD AXIS OTHERWISE NORMAL ECG RI6.02 No previous ECG available for comparison
[2020-01-06] MEDS ORDERED: ENOXAPARIN ** NOTE DOSE ** SYRINGE SQ ONE (22:00)
[2020-01-06] MEDS ORDERED: IOHEXOL 350 MG/ML 100 ML VIAL. IV ONE (22:00)
--- NOTE | 2020-01-06 22:49 | NUR ---
The patient, GERBER OLSON, 59 y/o, F admitted by JEFFERY MADSEN MD, was given written information regarding hospital policies, unit procedures and contact persons. Valuables were checked and logged. Call light in place. Will continue to monitor.
[2020-01-06 23:06] VITALS: BP 95/53
[2020-01-06] MEDS ORDERED: ALBU2.5V8 IH (23:15)
--- NOTE | 2020-01-06 23:15 | RAD ---
Study: CT CHEST WITH CONTRAST - PULMONARY ANGIOGRAM History: Chest pain. Dyspnea. Pulmonary embolism. Comparison: Correlation is made to the CT abdomen/pelvis from 07/11/2019. Technique: Helical CT of the chest performed after the administration of 75 cc Omnipaque 350 intravenous contrast and timed for angiographic evaluation of the pulmonary arteries per PE protocol. Coronal and sagittal 3D MIP reformations were obtained. One or more of the following individualized dose reduction techniques were utilized for this examination: 1. Automated exposure control 2. Adjustment of the mA and/or kV according to patient size 3. Use of iterative reconstruction technique. Findings: Pulmonary Arteries: No main, lobar or segmental pulmonary embolism. Heart/Systemic Vasculature: No CT findings of overt right heart strain. LAD calcific coronary artery disease. Nonaneurysmal aorta. Mediastinum: Scattered mediastinal and hilar lymph nodes do not meet pathologic criteria based on size. Small hiatal hernia. Mild circumferential thickening of the distal esophageal wall. Lungs: No confluent infiltrate, pleural effusion or pneumothorax. No suspicious pulmonary nodule by size criteria. Neck/Axilla/Body Wall: Heterogeneous prominence of the right thyroid lobe relative to the left with a thin somewhat linear calcification at the mid pole. This may be associated with a nodule but no measurable nodule is apparent. Scattered subcentimeter short axis axillary/subpectoral lymph nodes. Heterogeneous breast tissue without a discrete mass. Upper Abdomen: Nodular configuration of the left adrenal gland is not significantly different from the comparison. Bones: Findings typical of diffuse idiopathic skeletal hyperostosis. Grade 1 anterolisthesis of C7 on T1. Multifocal degenerative changes with mineralized protruding foci at T6-T7 larger than T7-T8. Degenerative changes of both shoulders and possible sequela of prior trauma on the right. Miscellaneous: None. IMPRESSION: 1. No main, lobar or segmental pulmonary embolism. 2. Calcific coronary artery disease involving the LAD. 3. Heterogeneous breast tissue without a discrete mass. If not recently performed screening mammography is recommended. 4. Additional chronic findings, as above Electronically signed by: LINA GORE MD (01/06/2020 11:13 PM) [id number]
[2020-01-07 06:04] VITALS: BP 110/94
--- NOTE | 2020-01-07 06:32 | NUR ---
Pt rested soundly all night. Pt denies pain. Minimal blood crusted on left fingers, around nostrils and on lower lip. Upon inspection, there is a small bite demetrius on lower lip. Pt confirms she picked her nose last night, denies discomfort. Will continue to monitor.
[2020-01-07 06:35] LABS: BASO % 0 % (0-3); EOS % 0 % (0-3); HEMATOCRIT 36.2 % (36.0-47.0); LYMPH # 1.3 x10^3/uL (1.0-4.8); LYMPH % 13 % (24-48); MEAN CORPUSCULAR HEMOGLOBIN 31 pg (25-35); MEAN CORPUSCULAR HGB CONC 33 g/dL (31-37); MEAN CORPUSCULAR VOLUME 92 fL (79-100); MONO # 0.4 x10^3/uL (0.0-1.1); MONO % 4 % (0-9); NEUT # 7.7 x10^3uL (1.8-7.7); NEUT % 82 % (31-73); PLATELET COUNT 117 x10^3/uL (140-400); RED BLOOD COUNT 3.93 x10^6/uL (3.50-5.40); RED CELL DISTRIBUTION WIDTH 14.9 % (11.5-14.5); WHITE BLOOD COUNT 9.3 x10^3/uL (4.0-11.0)
[2020-01-07 06:41] LABS: CALCIUM 8.6 mg/dL (8.5-10.1); GFR 56.7; POTASSIUM 3.6 mmol/L (3.5-5.1)
[2020-01-07] MEDS: PROPRANOLOL 20 MG TABLET. PO SCH ×2 (09:00→21:23)
[2020-01-07] MEDS: IPRATRPIUM/ALBUTEROL 0.5/2.5MG 3 ML NEBU. NEB SCH ×4 (09:30→21:23)
[2020-01-07] MEDS: BUDESONIDE 0.5 MG/2 ML NEBU NEB SCH ×2 (09:30→21:23)
[2020-01-07] MEDS: FAMOTIDINE 20 MG TABLET PO SCH ×2 (09:30→21:17)
[2020-01-07] MEDS: CITALOPRAM 10 MG TABLET. PO SCH (09:31)
[2020-01-07] MEDS: ATORVASTATIN CALCIUM 10 MG TABLET. PO SCH (09:31)
[2020-01-07] MEDS: MAGNESIUM OXIDE 400 MG TABLET PO SCH ×3 (09:31→21:17)
[2020-01-07] MEDS: AZITHROMYCIN 250 MG TABLET. PO SCH (09:31)
[2020-01-07] MEDS: DIVALPROEX SODIUM 250 MG TABLET.DR. PO SCH ×2 (09:31→21:16)
[2020-01-07] MEDS: CARBIDOPA/LEVODOPA 25/100MG TABLET PO SCH ×4 (09:31→21:16)
[2020-01-07] MEDS: CETIRIZINE HCL 10 MG TABLET PO SCH (09:32)
[2020-01-07] MEDS: FUROSEMIDE 40 MG TABLET PO SCH ×2 (09:32→13:50)
[2020-01-07] MEDS: ASPIRIN ENTERIC COATED 81 MG TABLET.DR. PO SCH (09:32)
[2020-01-07] MEDS: FLUTICASONE 50MCG/NASAL SPRAY 16GM BOTTLE. NS SCH (09:41)
[2020-01-07] MEDS: PRIMIDONE 50 MG TABLET PO SCH ×3 (09:44→21:17)
[2020-01-07] MEDS: rOPINIRole 1 MG TABLET. PO SCH ×3 (09:44→21:17)
[2020-01-07 09:52] VITALS: BP 103/62
[2020-01-07 10:09] LABS: THYROID STIM HORMONE (TSH) 0.342 uIU/mL (0.358-3.740)
[2020-01-07 14:17] VITALS: BP 119/78
--- NOTE | 2020-01-07 16:25 | NUR ---
Patient in bed with eyes closed at shift change. Awoke patient without difficulty and she was calm and cooperative with assessment and medication administration. Patient expressed gratitude for all cares given. Takes medications whole without difficulty. Patient complained of stomach pain, but after taking her to the bathroom to void, she stated "I feel so much better." Patient has good appetite, no fever noted, VSS. Will continue to monitor.
[2020-01-07 20:50] VITALS: BP 116/66
[2020-01-07] MEDS: MONTELUKAST 10 MG TABLET. PO SCH (21:17)
[2020-01-07 23:03] VITALS: BP 100/74
[2020-01-08] MEDS: BUDESONIDE 0.5 MG/2 ML NEBU NEB SCH ×2 (08:00→20:00)
[2020-01-08] MEDS: ATORVASTATIN CALCIUM 10 MG TABLET. PO SCH (08:03)
[2020-01-08] MEDS: ASPIRIN ENTERIC COATED 81 MG TABLET.DR. PO SCH (08:04)
[2020-01-08] MEDS: FUROSEMIDE 40 MG TABLET PO SCH ×2 (08:04→16:23)
[2020-01-08] MEDS: CARBIDOPA/LEVODOPA 25/100MG TABLET PO SCH ×4 (08:04→20:00)
[2020-01-08] MEDS: MAGNESIUM OXIDE 400 MG TABLET PO SCH ×3 (08:04→20:00)
[2020-01-08] MEDS: CITALOPRAM 10 MG TABLET. PO SCH (08:04)
[2020-01-08] MEDS: rOPINIRole 1 MG TABLET. PO SCH ×3 (08:04→20:01)
[2020-01-08] MEDS: DIVALPROEX SODIUM 250 MG TABLET.DR. PO SCH ×2 (08:04→20:00)
[2020-01-08] MEDS: AZITHROMYCIN 250 MG TABLET. PO SCH (08:04)
[2020-01-08] MEDS: FAMOTIDINE 20 MG TABLET PO SCH ×2 (08:05→20:01)
[2020-01-08] MEDS: PRIMIDONE 50 MG TABLET PO SCH ×3 (08:05→20:01)
[2020-01-08] MEDS: PROPRANOLOL 20 MG TABLET. PO SCH ×2 (08:06→20:02)
[2020-01-08] MEDS: FLUTICASONE 50MCG/NASAL SPRAY 16GM BOTTLE. NS SCH (08:07)
[2020-01-08 08:35] VITALS: BP 108/67
--- NOTE | 2020-01-08 10:02 | NUR ---
tx was given by nursing at 0507.
--- NOTE | 2020-01-08 10:20 | NUR ---
IP: patient PUI for COVID -19 requires contact and airborne precautions.
[2020-01-08 11:50] VITALS: BP 91/61
[2020-01-08] MEDS: CETIRIZINE HCL 10 MG TABLET PO SCH (13:51)
--- NOTE | 2020-01-08 14:00 | HP ---
ADMIT DATE: HISTORY OF PRESENT ILLNESS: The patient is a 59-year-old female patient, a resident at [facility], who apparently was noted by the nursing staff there to have fever and has not been feeling well over the past couple of days. She is having coughing a lot, wheezing, chest does not feel well. She did also complain of chills, dyspnea, cough, chest pain, arthralgia, myalgia and malaise, but no recent travel outside [facility]. No specific ill contact with other individuals in the rehab facility that have medical illnesses. No history of change in medication. The patient is known to have episodes of bronchitis and COPD exacerbation before. She was basically extensively investigated in the Emergency Room and apparently was found to be initially afebrile and was admitted as she is pending the COVID-19 testing. PAST MEDICAL HISTORY: Significant for hyperlipidemia, hypertension, allergic rhinitis, bronchial asthma, intellectual disability, gastroesophageal reflux disease, schizoaffective disorder, bipolar, restless leg syndrome, tremors, pneumonia and deconditioning. PAST SURGICAL HISTORY: Unremarkable. ALLERGIES: She has no known drug allergies. MEDICATIONS: She was on following medications: She was on cetirizine 10 mg once a day, albuterol sulfate 2 puffs every 4 hours, atorvastatin calcium 10 mg at bedtime, propranolol 60 mg twice a day, aspirin 81 mg once a day, ____ Mysoline 100 mg twice a day, primidone 50 mg 2 tablets at bedtime, divalproex sodium 500 mg daily, divalproex 1000 mg at bedtime. She is on escitalopram oxalate 10 mg once a day, carbidopa/levodopa 1 tablet 4 times a day for tremors, Requip 1 mg 3 times a day, furosemide 40 mg twice a day, Flonase 2 sprays to each nostril once a day, Singulair 10 mg once a day, magnesium oxide 400 mg 3 times a day, famotidine 20 mg twice a day, Flonase 2 sprays to each nostril once a day. FAMILY HISTORY: Noncontributory. SOCIAL HISTORY: She is a resident at [facility]. She apparently does not smoke, drink alcohol or use any recreational drugs. REVIEW OF SYSTEMS: As per history of present illness. PHYSICAL EXAMINATION: GENERAL: On arrival to the Emergency Room, she looked well and was clearly in no apparent respiratory distress. No pallor, jaundice, cyanosis or thyromegaly. No jugular venous distention. No limb edema. VITAL SIGNS: Her heart rate was 85, blood pressure was 118/69, temperature was 98.5, respiratory rate was 17 and oxygen saturation was 95% on room air. HEAD, EYES, EARS, NOSE AND THROAT: Showed normocephalic, atraumatic. NECK: Supple. HEART: Showed normal first and second heart sounds. No gallop, rub or murmur. CHEST: Clear to auscultation. No crepitation or rhonchi. ABDOMEN: Distended, soft, nontender. No guarding or rigidity. No organomegaly. All hernial orifice intact. Bowel sounds normal. NEUROLOGIC: She was confused, but without any obvious lateralizing sign. All cranial nerves intact. EXTREMITIES: She moves extremities without difficulty. She ambulates without assistance or assistive devices. LABORATORY DATA: Her lab work on admission showed a white cell count 9700, hemoglobin 13, hematocrit 39, MCV 92, and platelet count of 132,000. Her chemistry showed a serum sodium 135, potassium 3.7, chloride 99, bicarbonate 26, anion gap of 10, BUN 22, creatinine 1.1, estimated GFR was 51 mL per minute. Her glucose 133, calcium was 9, magnesium 2. Total bilirubin, AST, ALT, alkaline phosphatase were normal. Her beta natriuretic peptide was 706. Total protein was 7.6, albumin was 3.1. Her serum lipase was 79. Her prothrombin time was 10.5, INR 1, aPTT was 28 and D-dimer was slightly elevated at 0.57. Urinalysis showed the urine was yellow, clear with a pH of 6, specific gravity 1.010. The urine was negative for protein, glucose, ketones with trace of blood, negative for nitrite and leukocyte esterase. There are occasional rbc's, occasional wbc's, and very few bacteria. The toxicology screen was positive for barbiturates, negative for all other drugs and her influenza A and B were negative. Group A streptococcus rapid test was negative. Her COVID-19 by PCR is still pending at the time of this dictation. ASSESSMENT AND PLAN: In summary, this is a 59-year-old female patient, a resident at [facility], who was admitted with cough, shortness of breath and chest pain. Her troponin was less than 0.017. She did have a CT angio of the chest and chest x-ray showed that the patient has no acute infiltrate and CT angio of the chest showed that there are no main lobar or segmental pulmonary emboli. There are calcific coronary artery disease involving the left anterior descending. She has heterogenous breast tissue without any discrete mass. If not recently performed screening mammography is recommended. The patient was basically admitted and continued on all her medication. She was admitted and kept on droplet precaution as she was swabbed for COVID-19, the result of which obviously is still pending at the time of this dictation. JEFFERY MADSEN MD DR: REYNOLD/mariusz JOB#: [id number] / [id number]
[2020-01-08 14:10] VITALS: BP 101/79
--- NOTE | 2020-01-08 17:24 | NUR ---
NSG NOTE; CALM AND COOPERATIVE PT HAS BEEN LOOKING AT [employer] TODAY AND HAS WATCHED SOME TV. SHE IS INDEPENDENT IN HER ROOM WITH AMB AND TOILETING. NO C/O OF COUGH, FEVER OR PAIN TODAY
[2020-01-08 19:33] VITALS: BP 106/78
--- NOTE | 2020-01-08 19:33 | PN ---
DATE: 01/08/2020 SUBJECTIVE: The patient was admitted on 01/05 with multiple complaints including fever, cough, myalgia, arthralgia. Her D-dimer was slightly elevated and she did have a chest x-ray and a CT scan of the chest. Her chest x-ray was unremarkable, showed that the lungs are clear. The heart size is normal. There is no effusion or pneumothorax. CT angio of the chest showed that she has no main lobar or segmental pulmonary embolism with no CT scan evidence of right heart strain. She does have also a left anterior descending calcific coronary artery disease and aneurysmal aorta; has scattered mediastinal hilar lymph nodes, do not meet pathology criteria based on size; small hiatal hernia and mild circumferential thickening of distal esophageal wall. Lungs showed no confluent infiltrate, pleural effusion, or pneumothorax. The patient did have a mild low-grade fever. PHYSICAL EXAMINATION: GENERAL: When I examined her, she looked well again and was in no apparent respiratory distress. No pallor, jaundice, cyanosis or thyromegaly. No jugular venous distention. No limb edema. VITAL SIGNS: Her heart rate was 87, blood pressure was 108/67, her temperature was 98.2, respiratory rate was 18 and oxygen saturation was 93% on room air. HEENT: Showed normocephalic, atraumatic. NECK: Supple. HEART: Normal first and second heart sounds. No gallop or murmur. CHEST: Clear to auscultation. No crepitation or rhonchi. ABDOMEN: Distended, soft, nontender. No guarding or rigidity. No organomegaly. All hernial orifices intact. Bowel sounds normal. NEUROLOGIC: She is confused, but without any obvious lateralizing sign. She moves extremities without difficulty. She ambulates without assistance or assistive devices. LABORATORY DATA: Showed a white cell count of 9300, hemoglobin 12, hematocrit 36, MCV 92, and platelet count of 117,000. Her chemistry showed a serum sodium 137, potassium 3.6, chloride 102, bicarbonate 28, anion gap of 7, BUN 21, creatinine 1, estimated GFR was 56 mL per minute. Her glucose 137, calcium was 8.6. Her throat and nasal culture so far is negative and her blood culture showed no growth after 1 day. ASSESSMENT: Cough, dyspnea and bronchitis, likely due to chronic obstructive pulmonary disease exacerbation, chest pain, myocardial infarction ruled out, hypertension, hyperlipidemia, restless leg syndrome, tremors, bronchial asthma, elevated D-dimer, negative CT angio of the chest, mild thrombocytopenia. PLAN: To continue with all her current medications. Await the results of the COVID-19. JEFFERY MADSEN MD DR: REYNOLD/mariusz JOB#: [id number] / [id number]
[2020-01-08] MEDS: MONTELUKAST 10 MG TABLET. PO SCH (20:01)
[2020-01-08] MEDS: LACTOBACILLUS RHAMNOSUS GG 1 CAPSULE. PO SCH (20:02)
--- NOTE | 2020-01-08 20:16 | PN ---
DATE: 01/08/2020 SUBJECTIVE: The patient was walking in her room and on questioning her, she denied any complaint. The nursing staff did not voice any concern and stated that she had generally an uneventful night. She is very confused, but pleasantly so, she is mostly compliant and cooperative with care and medication. PHYSICAL EXAMINATION: GENERAL: When I examined her, she looked pale, no jaundice, cyanosis or thyromegaly. No jugular venous distention. No limb edema. VITAL SIGNS: Her heart rate was 66, blood pressure was 91/61, temperature was 97.9, respiratory rate was 20, and oxygen saturation was 97%. HEAD, EYES, EARS, NOSE AND THROAT: Showed she is normocephalic, atraumatic. NECK: Supple. HEART: Normal first and second heart sounds. No gallop or murmur. CHEST: Clear to auscultation. No crepitation or rhonchi. ABDOMEN: Distended, soft, nontender. NEUROLOGIC: She was awake, alert, confused. All her cranial nerves intact. She moves extremities without difficulty. She ambulates without assistance or assistive devices. LABORATORY DATA: Her lab work was done today. ASSESSMENT: Shortness of breath, cough, likely due to chronic obstructive pulmonary disease exacerbation, chest pain, myocardial infarction ruled out. Hypertension, well controlled. Gastroesophageal reflux disease, bronchial asthma, restless leg syndrome, hyperlipidemia, thrombocytopenia, elevated D-dimer; however, CT angio of the chest was negative for pulmonary emboli. PLAN: To continue with all her current medication. If her COVID test comes negative tomorrow, [facility]. JEFFERY MADSEN MD DR: REYNOLD/mariusz JOB#: [id number] / [id number]
[2020-01-08 22:25] VITALS: BP 98/66
--- NOTE | 2020-01-08 23:33 | NUR ---
pts covid 19 swab came back "not detected"
[2020-01-09 05:12] VITALS: BP 98/62
[2020-01-09 06:14] LABS: BASO % 1 % (0-3); EOS # 0.1 x10^3/uL (0.0-0.7); EOS % 2 % (0-3); HEMATOCRIT 32.8 % (36.0-47.0); HEMOGLOBIN 10.9 g/dL (12.0-15.5); LYMPH # 1.7 x10^3/uL (1.0-4.8); LYMPH % 33 % (24-48); MEAN CORPUSCULAR HEMOGLOBIN 31 pg (25-35); MEAN CORPUSCULAR HGB CONC 33 g/dL (31-37); MEAN CORPUSCULAR VOLUME 92 fL (79-100); MONO # 0.6 x10^3/uL (0.0-1.1); MONO % 11 % (0-9); NEUT # 2.8 x10^3uL (1.8-7.7); NEUT % 55 % (31-73); PLATELET COUNT 120 x10^3/uL (140-400); RED BLOOD COUNT 3.57 x10^6/uL (3.50-5.40); RED CELL DISTRIBUTION WIDTH 15.2 % (11.5-14.5); WHITE BLOOD COUNT 5.1 x10^3/uL (4.0-11.0)
[2020-01-09 06:30] LABS: ALBUMIN 2.4 g/dL (3.4-5.0); ALBUMIN/GLOBULIN RATIO 0.6 (1.0-1.7); CALCIUM 8.6 mg/dL (8.5-10.1); GFR 56.7; POTASSIUM 3.5 mmol/L (3.5-5.1); TOTAL BILIRUBIN 0.2 mg/dL (0.2-1.0); TOTAL PROTEIN 6.2 g/dL (6.4-8.2)
[2020-01-09 08:37] VITALS: BP 107/79
[2020-01-09] MEDS: FLUTICASONE 50MCG/NASAL SPRAY 16GM BOTTLE. NS SCH (09:00)
[2020-01-09] MEDS: FUROSEMIDE 40 MG TABLET PO SCH (09:29)
[2020-01-09] MEDS: CITALOPRAM 10 MG TABLET. PO SCH (09:30)
[2020-01-09] MEDS: AZITHROMYCIN 250 MG TABLET. PO SCH (09:30)
[2020-01-09] MEDS: CETIRIZINE HCL 10 MG TABLET PO SCH (09:30)
[2020-01-09] MEDS: MAGNESIUM OXIDE 400 MG TABLET PO SCH ×2 (09:30→14:34)
[2020-01-09] MEDS: DIVALPROEX SODIUM 250 MG TABLET.DR. PO SCH (09:31)
[2020-01-09] MEDS: CARBIDOPA/LEVODOPA 25/100MG TABLET PO SCH ×2 (09:31→14:34)
[2020-01-09] MEDS: ATORVASTATIN CALCIUM 10 MG TABLET. PO SCH (09:31)
[2020-01-09] MEDS: FAMOTIDINE 20 MG TABLET PO SCH (09:31)
[2020-01-09] MEDS: LACTOBACILLUS RHAMNOSUS GG 1 CAPSULE. PO SCH (09:31)
[2020-01-09] MEDS: ASPIRIN ENTERIC COATED 81 MG TABLET.DR. PO SCH (09:31)
[2020-01-09] MEDS: PROPRANOLOL 20 MG TABLET. PO SCH (09:33)
[2020-01-09] MEDS: rOPINIRole 1 MG TABLET. PO SCH ×2 (09:35→14:35)
[2020-01-09] MEDS: PRIMIDONE 50 MG TABLET PO SCH ×2 (09:35→14:35)
[2020-01-09] MEDS: BUDESONIDE 0.5 MG/2 ML NEBU NEB SCH (09:36)
[2020-01-09 11:00] VITALS: BP 98/64
--- NOTE | 2020-01-09 13:30 | DS ---
DATE OF DISCHARGE: HOSPITAL COURSE: The patient is a 59-year-old female patient, a resident at the [facility], who was admitted with multiple complaints including not feeling well, having cough, wheezing. She does not feel well. She is also complaining of chills, dyspnea, cough, chest pain, arthralgia, myalgia, malaise, but no recent travel outside the [place]. No physical contact with other individuals. She has no known exposure to anybody with COVID-19. She was extensively investigated and was basically admitted with chest pain, myocardial infarction was ruled out. She has 3 sets of cardiac enzyme. She also had cough with dyspnea, bronchitis, likely due to chronic obstructive pulmonary disease exacerbation. She was swabbed for COVID-19, it eventually came back negative and as she remained hemodynamically stable and afebrile, a decision was made to discharge her back to the [facility]. PHYSICAL EXAMINATION: GENERAL: When I saw her today, she looked well and was clearly in no apparent respiratory distress. She is pale. No jaundice, cyanosis or thyromegaly. No jugular venous distention or limb edema. VITAL SIGNS: Her heart rate was 61, blood pressure was 107/79, temperature was 96.9, respiratory rate was 18, and oxygen saturation was 100%. HEAD, EYES, EARS, NOSE AND THROAT: Showed normocephalic, atraumatic. NECK: Supple. HEART: Showed normal first and second heart sounds. No gallop or murmur. CHEST: Clear to auscultation. No crepitation or rhonchi. ABDOMEN: Distended, soft, nontender. NEUROLOGIC: She is grossly intact. Her intake was 1220, no output was recorded. As of this morning, her coronavirus by PCR was not detected. Her influenza A and B were negative and group A streptococcus rapid test was negative. LABORATORY DATA: Her white cell count was 5100, hemoglobin 11, hematocrit 33, MCV 92, and platelet count of 120,000. Serum sodium 138, potassium 3.5, chloride 101, bicarbonate 32, anion gap of 5, BUN 17, creatinine 1, estimated GFR was 56 mL per minute. Her glucose was 96, calcium was 8.6. Total bilirubin, AST, ALT, alkaline phosphatase were normal. Total protein was 6.2, albumin 2.4. Her prothrombin time, INR and aPTT were normal. Her D-dimer was 0.57. Urinalysis was essentially unremarkable and toxic screen was negative except for barbiturates. DISCHARGE MEDICATIONS: She will be discharged back to [facility] to continue albuterol sulfate 2 puffs every 4 hours as needed, aspirin 81 mg once a day, atorvastatin calcium 10 mg at bedtime, carbidopa/levodopa 25/100 one tablet 4 times a day, cetirizine 10 mg once a day, divalproex sodium 500 mg once a day, divalproex sodium 1000 mg at bedtime, escitalopram oxalate 15 mg daily, famotidine 20 mg twice a day, Flovent 100 mcg 2 puffs twice a day, Flonase 2 sprays to each nostril once a day, furosemide 40 mg twice a day, magnesium oxide 400 mg 3 times a day, Singulair 10 mg at bedtime, primidone for Mysoline 50 mg take 2 tablets twice a day, propranolol 60 mg twice a day and Requip 1 mg 3 times a day. FINAL DISCHARGE DIAGNOSES: Chronic obstructive pulmonary disease exacerbation, resolved; chest pain; myocardial infarction, ruled out; hypertension, well controlled; gastroesophageal reflux disease; bronchial asthma; restless leg syndrome; hyperlipidemia; thrombocytopenia; elevated D-dimer; however, CT angio of the chest was negative for pulmonary emboli. JEFFERY MADSEN MD DR: REYNOLD/mariusz JOB#: [id number] / [id number]
--- NOTE | 2020-01-09 17:14 | NUR ---
Discharge Note: GERBER OLSON [address] Patient was discharged back to prior residence. Patient was escorted off the unit with all of her personal belongings.
== END 2020-01-09 16:00 | disposition home or self-care (01) | DRG 391 ==
LOC: ER 19:31 → 1 SOUTH 22:35
PROVIDERS: ADMIT Internal Medicine; ATTEND Internal Medicine
DX: K21.9 Gastro-esophageal reflux disease without esophagitis (principal); E43 Unspecified severe protein-calorie malnutrition; J44.1 Chronic obstructive pulmonary disease with (acute) exacerbation; J44.0 Chronic obstructive pulmonary disease with (acute) lower respiratory infection; J40 Bronchitis, not specified as acute or chronic; D69.6 Thrombocytopenia, unspecified; E78.5 Hyperlipidemia, unspecified; F25.9 Schizoaffective disorder, unspecified; F79 Unspecified intellectual disabilities; G25.81 Restless legs syndrome; I10 Essential (primary) hypertension; I25.10 Atherosclerotic heart disease of native coronary artery without angina pectoris; M41.9 Scoliosis, unspecified; F41.9 Anxiety disorder, unspecified; J30.9 Allergic rhinitis, unspecified; M19.90 Unspecified osteoarthritis, unspecified site; Z03.818 Encounter for observation for suspected exposure to other biological agents ruled out
CPT/HCPCS: 36415; 71045; 71275; 80048; 80053; 80061; 80076; 80307; 80329; 81001; 82550; 83690; 83735; 83880; 84443; 84484; 85025; 85379; 85610; 85730; 87040; 87070; 87804; 87880; 93005; 94640; 96361; 96372; 96374; J0456; J1650; J2930; J7120; P9612; Q9967; 99285-25; G0480; U0003-CS

== ENCOUNTER → 2020-05-08 | Outpatient (CLI) | payer MEDICARE, OTHER ==
[~2020-05-08] MED LIST changes: +ALBU2.5V8 IH
--- NOTE | 2020-05-08 11:12 | RAD ---
EXAM: CT HEAD WITHOUT CONTRAST. HISTORY: Palpable mass on head. TECHNIQUE: Computed tomography of the head was performed without intravenous contrast. One or more of the following individualized dose reduction techniques were utilized for this examination: 1. Automated exposure control. 2. Adjustment of the mA and/or kV according to patient size. 3. Use of iterative reconstruction technique. COMPARISON: None. FINDINGS: No correlate for a palpable mass is identified. The scalp at the extreme vertex is not included. There is no intracranial hemorrhage. Spring-white differentiation is preserved. Prominence of the lateral ventricles and hemispheric sulci indicates moderate atrophy. The visualized paranasal sinuses appear clear. There are changes of bilateral cataract surgery. The temporal bones are unremarkable. The calvarium reveals no suspicious lesions. IMPRESSION: 1. No correlate for a palpable focus is identified. Correlate for the site of concern. 2. Moderate atrophy. No acute intracranial findings. Electronically signed by: Shaq Marti MD (05/08/2020 11:09 AM) [facility]
--- NOTE | 2020-05-16 11:22 | RAD ---
BILATERAL SCREENING MAMMOGRAM History: Routine screening. Comparison: 10/19/2018, left unilateral 04/20/2018. Technique: Routine bilateral digital mammogram views were obtained. Findings: Breast Tissue Density D :The breasts are extremely dense, which lowers the sensitivity of mammography. There are no dominant masses, suspicious microcalcifications, or architectural distortion. IMPRESSION: No mammographic evidence of malignancy. Recommend routine screening. BI-RADS category 1: Negative. The images were reviewed with computer aided detection. Patient information is entered into the reminder system with a target due date for the next screening mammogram. Mammography is the most sensitive method for finding small breast cancers, but it does not detect them all and is not a substitute for careful clinical examination. A negative mammogram does not negate a clinically suspicious finding and should not result in delay in biopsying a clinically suspicious abnormality. "Our facility is accredited by the [employer] Mammography Program." Electronically signed by: Vadim Arellano MD (05/16/2020 11:19 AM) [id number]
== END ==
LOC: CT 10:15
PROVIDERS: ATTEND Specialist
DX: Z12.31 Encounter for screening mammogram for malignant neoplasm of breast (principal); Z00.00 Encounter for general adult medical examination without abnormal findings; G31.9 Degenerative disease of nervous system, unspecified
CPT/HCPCS: 70450; 77067

== ENCOUNTER → 2020-11-27 | Outpatient (CLI) | payer MEDICARE, OTHER ==
[~2020-11-27] MED LIST changes: -FLUT100D IH; +FLUT100D2 IH
[2020-11-27 11:29] LABS: BASO % 1 % (0-3); EOS # 0.1 x10^3/uL (0.0-0.7); EOS % 2 % (0-3); HEMATOCRIT 37.3 % (36.0-47.0); HEMOGLOBIN 12.5 g/dL (12.0-15.5); LYMPH # 1.5 x10^3/uL (1.0-4.8); LYMPH % 40 % (24-48); MEAN CORPUSCULAR HEMOGLOBIN 31 pg (25-35); MEAN CORPUSCULAR HGB CONC 34 g/dL (31-37); MEAN CORPUSCULAR VOLUME 93 fL (79-100); MONO # 0.4 x10^3/uL (0.0-1.1); MONO % 9 % (0-9); NEUT # 1.9 x10^3uL (1.8-7.7); NEUT % 49 % (31-73); PLATELET COUNT 201 x10^3/uL (140-400); RED CELL DISTRIBUTION WIDTH 13.9 % (11.5-14.5); WHITE BLOOD COUNT 3.9 x10^3/uL (4.0-11.0)
[2020-11-27 11:40] LABS: ALBUMIN 3.4 g/dL (3.4-5.0); ALBUMIN/GLOBULIN RATIO 0.9 (1.0-1.7); ALK PHOS 103 U/L (46-116); ALT (SGPT) 19 U/L (14-59); ANION GAP 8 (6-14); AST (SGOT) 20 U/L (15-37); BLOOD UREA NITROGEN 22 mg/dL (7-20); BUN/CREATININE RATIO 24 (6-20); CALCIUM 9.3 mg/dL (8.5-10.1); CARBON DIOXIDE 29 mmol/L (21-32); CHLORIDE 108 mmol/L (98-107); CREATININE 0.9 mg/dL (0.6-1.0); GFR 63.9; GLUCOSE 75 mg/dL (70-99); POTASSIUM 4.2 mmol/L (3.5-5.1); SODIUM 145 mmol/L (136-145); TOTAL BILIRUBIN 0.3 mg/dL (0.2-1.0); TOTAL PROTEIN 7.4 g/dL (6.4-8.2)
[2020-11-27 11:42] LABS: VAL ACID 62 mcg/mL (50-100)
== END ==
LOC: LAB 09:36
PROVIDERS: ATTEND Clinical Nurse Specialist Psychiatric/Mental Health, Adult
DX: Z79.899 Other long term (current) drug therapy (principal)
CPT/HCPCS: 36415; 80053; 80061; 80164; 84146; 85025

== ENCOUNTER 2021-01-02 03:36 | Emergency (ER) | payer MEDICARE, OTHER ==
[~2021-01-02] VITALS: Ht 167.6 cm; Wt 68.2 kg
--- NOTE | 2021-01-02 04:54 | RAD ---
EXAMINATION: CT head and cervical spine without IV contrast. CT lumbar spine without IV contrast. INDICATION:60 years, Female, fall. COMPARISON: None TECHNIQUE: Spiral acquisition of contiguous images from the skull base to the vertex were obtained. C T of the cervical spine was obtained using contiguous spiral imaging from the skull base to the upper thoracic level. CT lumbar spine performed without IV contrast. Sagittal and coronal 2D reformatted s eries were provided by the technologist. Soft tissue and bone window algorithms were reviewed. Exposure: One or more of the following individualized dose reduction techniques were utilized for thi s examination: 1. Automated exposure control 2. Adjustment of the mA and/or kV according to patient size 3. Use of iterative reconstruction technique. FINDINGS: CT HEAD: Moderate brain parenchymal volume loss with Neither mass, midline shift, intracranial hemorrhage, acu te/subacute ischemic changes, nor extraaxial fluid collections are seen. The paranasal sinuses, masto id air cells, and middle ears are clear. The orbital contents appear within normal limits. CT CERVICAL SPINE: Grade 1 anterolisthesis of C7 over T1. Neither fracture, subluxation, nor traumatic spondylolisthesis is seen. Degenerative loss of vertebral body height. Severe multilevel degenerative changes with dis c space narrowing and anterior and posterior osteophytes. Endplate sclerosis. Severe multilevel bilat eral facet and uncovertebral arthropathy. There is no evidence of a large intraspinal hematoma. The p revertebral and paravertebral soft tissues are within normal limits. Coarse calcifications in the rig ht thyroid lobe. CT LUMBAR SPINE: Moderate dextroscoliosis of lumbar spine. Diffuse osteopenia. The lumbar spine is normally aligned. N o acute fracture. Vertebral body heights are maintained without compression deformity. Severe multile shazia degenerative changes with disc space narrowing and osteophytes. Vacuum disc phenomena. Severe mul tilevel facet arthropathy. No aggressive lytic or blastic osseous lesion. No significant spinal canal stenosis. Visualized abdominal structures are unremarkable. IMPRESSION: 1. No evidence of acute intracranial abnormality. 2. No evidence of fracture or traumatic spondylolisthesis of the cervical or lumbar spine. Electronically signed by: Cherelle Banegas MD (01/02/2021 4:51 AM) [facility]
--- NOTE | 2021-01-02 05:17 | PHYS DOC ---
Past History Past Medical History: Anxiety, Arthritis, Schizophrenia, Other Additional Past Medical Histor: INTELLECTUAL DEVELOPMENT PROBLEM, TREMORS, RLS Past Surgical History: Other Additional Past Surgical Histo: UNKNOWN Alcohol Use: None Adult General Chief Complaint Chief Complaint: MECHANICAL FALL HPI HPI Patient is a 60-year-old female who presents after tripping and falling over some close while doing laundry at home. States that she was doing laundry and tripped on some closed and fell forward onto the tile and hit her face on the ground. Denies any loss of consciousness, headache, changes in vision, neck pain, chest pain, shortness of breath, abdominal pain, nausea, vomiting. Denies any numbness/weakness/tingling. Denies any trouble sitting, standing or walking. Review of Systems Review of Systems Review of systems otherwise unremarkable except noted in HPI Allergies Allergies Allergies Coded Allergies Type Severity Reaction Last Updated Verified No Known Drug Allergies 07/11/19 No Physical Exam Physical Exam Constitutional: Well developed, well nourished, no acute distress, non-toxic appearance. [] HENT: Multiple abrasions on the face, forehead, nose, and cheeks with no indication for repair, bilateral tympanic membranes normal, oropharynx moist, no oral exudates, nose normal. [] Eyes: PERRLA, EOMI, conjunctiva normal, no discharge. [] Neck: Normal range of motion, no tenderness, supple, no stridor. [] Cardiovascular:Heart rate regular rhythm, no murmur [] Lungs & Thorax: Bilateral breath sounds clear to auscultation [] Abdomen: soft, no tenderness, no masses, no pulsatile masses. [] Skin: Warm, dry, no erythema, no rash. [] Back: Lumbar midline and paraspinal muscle tenderness with no obvious deformities or bruising. Extremities: No tenderness, ROM intact, no edema. [] Neurologic: Alert and oriented X 3, able to sit, stand and walk without issue, no focal deficits noted. [] Current Patient Data Vital Signs Vital Signs Date Time Temp Pulse Resp B/P (MAP) Pulse Ox O2 Delivery O2 Flow Rate FiO2 01/02/21 03:39 97.6 61 18 111/66 96 Room Air EKG EKG [] Radiology/Procedures Radiology/Procedures []OMPARISON: None TECHNIQUE: Spiral acquisition of contiguous images from the skull base to the vertex were obtained. CT of the cervical spine was obtained using contiguous spiral imaging from the skull base to the upper thoracic level. CT lumbar spine performed without IV contrast. Sagittal and coronal 2D reformatted series were provided by the technologist. Soft tissue and bone window algorithms were reviewed. Exposure: One or more of the following individualized dose reduction techniques were utilized for this examination: 1. Automated exposure control 2. Adjustment of the mA and/or kV according to patient size 3. Use of iterative reconstruction technique. FINDINGS: CT HEAD: Moderate brain parenchymal volume loss with Neither mass, midline shift, intracranial hemorrhage, acute/subacute ischemic changes, nor extraaxial fluid collections are seen. The paranasal sinuses, mastoid air cells, and middle ears are clear. The orbital contents appear within normal limits. CT CERVICAL SPINE: Grade 1 anterolisthesis of C7 over T1. Neither fracture, subluxation, nor traumatic spondylolisthesis is seen. Degenerative loss of vertebral body height. Severe multilevel degenerative changes with disc space narrowing and anterior and posterior osteophytes. Endplate sclerosis. Severe multilevel bilateral facet and uncovertebral arthropathy. There is no evidence of a large intraspinal hematoma. The prevertebral and paravertebral soft tissues are within normal limits. Coarse calcifications in the right thyroid lobe. CT LUMBAR SPINE: Moderate dextroscoliosis of lumbar spine. Diffuse osteopenia. The lumbar spine is normally aligned. No acute fracture. Vertebral body heights are maintained without compression deformity. Severe multilevel degenerative changes with disc space narrowing and osteophytes. Vacuum disc phenomena. Severe multilevel facet arthropathy. No aggressive lytic or blastic osseous lesion. No significant spinal canal stenosis. Visualized abdominal structures are unremarkable. IMPRESSION: 1. No evidence of acute intracranial abnormality. 2. No evidence of fracture or traumatic spondylolisthesis of the cervical or lumbar spine. Electronically signed by: Cherelle Banegas MD (01/02/2021 4:51 AM) [facility] Heart Score C/O Chest Pain: No Risk Factors: Risk Factors: DM, Current or recent (<one month) smoker, HTN, HLP, family history of CAD, obesity. Risk Scores: Risk Factors: DM, Current or recent (<one month) smoker, HTN, HLP, family history of CAD, obesity. Course & Med Decision Making Course & Med Decision Making Patient is a 60-year-old female who presents after a fall with facial abrasions, low back pain Vital signs not concerning. Patient denies need for pain or nausea medicine at this time. Imaging with no acute osseous abnormalities, or intracranial pathology. C- collar removed and patient was able to move in all directions without issue. Discussed all findings with patient and recommended Tylenol, ibuprofen and ice as needed at home. Advised to follow-up in the morning with primary care physician. Gave strict return precautions to the ED. Patient grateful, verbalized understanding and agreed with plan of discharge. [] Dragon Disclaimer Dragon Disclaimer This electronic medical record was generated, in whole or in part, using a voice recognition dictation system. Departure Departure: Impression: Primary Impression: Fall Additional Impression: Abrasion Disposition: HOME / SELF CARE / HOMELESS Condition: GOOD Referrals: SILVIA REYES MD (PCP) Patient Instructions: Abrasions, Fall Prevention and Home Safety Additional Instructions: Thank you for coming into the emergency department tonight and allowing us to take care of you. Please read all of the attached information above to go back over things we discussed. If you need to, you can use Tylenol, ibuprofen and ice as needed and tolerated for symptom control. Please follow-up in the morning with your primary care physician to update on ED visit and set up a follow-up as soon as possible. Please come back to the emergency department immediately with new or concerning symptoms as discussed. Problem Qualifiers JARED SAUCEDO MD Jan 02, 2021 05:17
[2021-01-02] MEDS ORDERED: DIPH,PERTUSS(ACELL),TET VAC/PF 0.5 ML SYRINGE. VAX IM ONE (06:00)
[2021-01-02 06:32] VITALS: BP 116/64
== END 2021-01-02 06:36 | disposition home or self-care (01) ==
LOC: ER 03:36
DX: S00.81XA Abrasion of other part of head, initial encounter (principal); W18.00XA Striking against unspecified object with subsequent fall, initial encounter; Y93.89 Activity, other specified; Y92.89 Other specified places as the place of occurrence of the external cause; Y99.8 Other external cause status
CPT/HCPCS: 70450; 72125; 72131; 90471; 90715; 99285-25

== ENCOUNTER → 2021-05-15 | Outpatient (CLI) | payer MEDICARE, OTHER ==
--- NOTE | 2021-05-15 17:02 | RAD ---
Bilateral digital screening mammogram (2D): Reason for examination: Routine screening. Comparison: Mammograms from , 10/19/2018. Interpretation was made with the benefit of CAD. FINDINGS: Breast density: Category D. The breasts are extremely dense which lowers sensitivity of mammography.. There are no dominant masses, suspicious calcifications or architectural distortions. There are uncha nged benign grouped calcifications in the 12:30 position of the left breast. IMPRESSION: No evidence of malignancy. Recommend routine screening. Assessment: BI-RADS 2. Benign findings. This patient's information has been entered into a reminder system for the patient to be notified wit h the results of her examination and a target date for the next mammogram. Your patient's mammogram demonstrates that she has dense breast tissue (breast density category C or D), which could hide abnormalities, and if she has other risk factors for breast cancer that have bee n identified, she might benefit from supplemental screening tests that may be suggested by you as her ordering physician. Dense breast tissue, in and of itself, is a relatively common condition. Therefo re, this information is not provided to cause undue concern, but rather to raise your awareness and t o promote discussion with your patient regarding the presence of other risk factors, in addition to d ense breast tissue. Electronically signed by: Tri Samuels MD (05/15/2021 5:00 PM) [id number]
--- NOTE | 2021-05-16 12:37 | RAD ---
Bone Densitometry History: Draining for osteoporosis Findings: Bone Densitometry was performed with dual photon absorption of the lumbar spine and proximal femurs. Lumbar Spine: Bone density is 1.285 g/cm2 for L1-L4. T-score is 0.9. Z-score is 2.1. Total right proximal femur: Bone density is 0.722 g/cm2. T-score is -2.3. Z-score is -1.3. IMPRESSION: Osteopenia in the right proximal femur. Normal bone mineral density in the lumbar spine. World Health Organization definition of osteoporosis and osteopenia for women: normal equal s T score at or above -1.0 standard deviations; osteopenia equals T score between -1.0 and -2.5 stand francis deviations; osteoporosis equals T score at or below -2.5 standard deviations. Electronically signed by: Tatiana Liu MD (05/16/2021 12:35 PM) [id number]
== END ==
LOC: MAMMO 12:09
PROVIDERS: ATTEND Specialist
DX: Z12.31 Encounter for screening mammogram for malignant neoplasm of breast (principal); M85.88 Other specified disorders of bone density and structure, other site
CPT/HCPCS: 77063; 77067; 77080

== ENCOUNTER → 2021-08-27 | Outpatient (CLI) | payer MEDICARE, OTHER ==
[2021-08-27 09:48] LABS: BASO % 1 % (0-3); EOS % 1 % (0-3); HEMOGLOBIN 13.6 g/dL (12.0-15.5); LYMPH # 1.3 x10^3/uL (1.0-4.8); LYMPH % 31 % (24-48); MEAN CORPUSCULAR HEMOGLOBIN 30 pg (25-35); MEAN CORPUSCULAR HGB CONC 32 g/dL (31-37); MEAN CORPUSCULAR VOLUME 92 fL (79-100); MONO # 0.3 x10^3/uL (0.0-1.1); MONO % 8 % (0-9); NEUT # 2.4 x10^3uL (1.8-7.7); NEUT % 59 % (31-73); PLATELET COUNT 188 x10^3/uL (140-400); RED BLOOD COUNT 4.58 x10^6/uL (3.50-5.40); RED CELL DISTRIBUTION WIDTH 14.2 % (11.5-14.5); WHITE BLOOD COUNT 4.1 x10^3/uL (4.0-11.0)
[2021-08-27 09:54] LABS: ALBUMIN 3.3 g/dL (3.4-5.0); ALBUMIN/GLOBULIN RATIO 0.9 (1.0-1.7); ALK PHOS 92 U/L (46-116); ALT (SGPT) 18 U/L (14-59); ANION GAP 7 (6-14); AST (SGOT) 14 U/L (15-37); BLOOD UREA NITROGEN 20 mg/dL (7-20); BUN/CREATININE RATIO 25 (6-20); CALCIUM 8.9 mg/dL (8.5-10.1); CARBON DIOXIDE 30 mmol/L (21-32); CHLORIDE 105 mmol/L (98-107); CREATININE 0.8 mg/dL (0.6-1.0); GFR 72.9; GLUCOSE 81 mg/dL (70-99); POTASSIUM 4.4 mmol/L (3.5-5.1); SODIUM 142 mmol/L (136-145); TOTAL BILIRUBIN 0.4 mg/dL (0.2-1.0); TOTAL PROTEIN 6.8 g/dL (6.4-8.2)
[2021-08-27 10:01] LABS: VAL ACID 74 mcg/mL (50-100)
[2021-08-27 18:23] LABS: CHOLESTEROL/HDL RATIO 2.7
== END ==
LOC: LAB 09:05
PROVIDERS: ATTEND Clinical Nurse Specialist Psychiatric/Mental Health, Adult
DX: Z79.899 Other long term (current) drug therapy (principal)
CPT/HCPCS: 36415; 80053; 80061; 80164; 82140; 84146; 85025